=== PATIENT | female | born 1945 | race Caucasian/White ===

== ENCOUNTER 2018-10-09 11:52 | Observation (INO) ==
[2018-10-09] MEDS ORDERED: ZOFRAN IV ONE (14:05)
[2018-10-09] MEDS ORDERED: NS 1,000 ML IV ONE (14:05)
[2018-10-09] MEDS ORDERED: TORADOL IV ONE (14:05)
--- NOTE | 2018-10-09 14:08 | EKG Report ---
Test Performed on : 10/09/2018 12:30:11 PM Test Reason : CP Blood Pressure : / mmHG Vent. Rate : 070 BPM Atrial Rate : 070 BPM P-R Int : 220 ms QRS Dur : 088 ms QT Int : 392 ms P-R-T Axes : 054 -02 007 degrees QTc Int : 423 ms Sinus rhythm. with 1st degree AV block. Nonspecific T wave abnormality Abnormal ECG When compared with ECG of 10-DEC-2016 11:12, ST no longer depressed in Anterior leads T wave inversion now evident in Inferior leads Unconfirmed Result
--- NOTE | 2018-10-09 14:27 | Diag Imaging Result Doc PS360 ---
CHEST-2 VIEWS - 10/09/2018 INDICATION: CP COMPARISON: 12/10/2016 FINDINGS: The lungs are normally expanded and clear. Heart size and mediastinal contours are normal. No pneumothorax or pleural effusion. IMPRESSION: Negative exam. Electronically signed by Rafal Velazquez 10/09/2018 2:25 PM
[2018-10-09 14:41] LABS: BASO# 0.05 X1000 (0.0-0.2); BASO% 0.7 % (0.0-0.8); EOS# 0.27 X1000 (0.0-0.7); EOS% 3.7 % (0.0-10.0); HEMATOCRIT 38.7 % (37.0-47.0); HEMOGLOBIN 11.9 g/dL (12.0-16.0); LYMPH# 1.97 X1000 (1.2-3.4); LYMPH% 27.3 % (20.5-51.1); MCH 28.9 PG (27-31); MCHC 30.7 g/dL (33-37); MCV 93.9 FL (81-99); MONO# 0.68 X1000 (0.11-0.59); MONO% 9.4 % (1.7-9.3); NEUT# 4.24 X1000 (1.4-6.5); NEUT% 58.9 % (42.2-75.2); PLT 191 X1000 (130-400); RBC 4.12 XMIL (4.2-5.4); RDW 13.2 % (11.5-14.5); WBC 7.21 X1000 (4.8-10.8)
[2018-10-09 14:45] LABS: INR 1.21; PROTIME 16.3 Seconds (11.0-16.0)
[2018-10-09 14:46] LABS: PTT 34.2 Seconds (22.3-41.8)
[2018-10-09 14:59] LABS: ALB/GLOB RATIO 1.3; ALBUMIN 3.8 g/dL (3.5-5.0); CALCIUM 9.4 mg/dL (8.8-10.2); CREATININE 1.1 mg/dL (0.5-0.9); POTASSIUM 4.7 mmol/L (3.5-5.1); TOTAL BILIRUBIN 0.42 mg/dL (0.20-1.00); TOTAL PROTEIN 6.7 g/dL (6.3-8.3)
--- NOTE | 2018-10-09 16:11 | PROVIDER DOCUMENTATION ---
This chart was entered by Ni Michael Scribe, acting as scribe for Mickey Foster MD. HPI-Chest Pain - General Chief Complaint: Chest Pain Stated Complaint: chest pain Time Seen by Provider: 10/09/18 13:41 Source: patient Allergies/Adverse Reactions: Patient Allergies Allergy/AdvReac Type Severity Reaction Status Date / Time sulfamethoxazole Allergy FLUSHING Verified 12/10/16 11:29 [From Bactrim] trimethoprim [From Bactrim] Allergy FLUSHING Verified 12/10/16 11:29 Home Medications: Home Medication List Medication Instructions Recorded Confirmed Last Taken Type Celecoxib [Celebrex] 200 mg PO DAILY 03/09/13 12/10/16 12/10/16 08:30 History Hydrocodone/Acetaminophen [Lortab 1 each PO TID 03/09/13 12/10/16 12/10/16 07: 30 History 10-500 Tablet] Alprazolam [Xanax] 0.5 mg PO QHS 10/11/13 12/10/16 12/09/16 19:00 History Methenam/Me Blue/Ba/Salicy/Hyo 1 each PO Q6HR #12 tablet 04/25/15 12/10/16 Unknown Rx [Prosed-Ds Tablet] Levofloxacin [Levaquin] 500 mg PO DAILY 12/10/16 12/10/16 12/09/16 20:30 History Metoprolol [Lopressor] 25 mg PO DAILY 12/10/16 12/10/16 12/10/16 08:00 History - History of Present Illness-CP Nature of Presenting Problem: Patient is a 73 year old female who presents to the ED via EMS with chest pain. Patient states chest pain started while she was cleaning her house. Patient states having shortness of breath, nausea, and weakness. Patient states taking a nitro and her pain resolved completely. Location: reports: central Chest Pain Radiation: reports: no radiation Quality of Pain: reports: pressure Severity in ED: mild Onset/Duration: this afternoon Timing: gone now Context/Activities at Onset: reports: light activity Modifying Factors: improves with: nothing Associated Symptoms: reports: nausea, shortness of breath, weakness Nitro Today/Relief: 0.4 mg x 1, provided at home, complete relief Aspirin Treatment Today: 81 mg x 4, provided by EMS Prior Chest Pain/Cardiac Workup: reports: cardiac cath (7 years ago) Similar Symptoms Previously?: No Recently Seen Here or By Another Healthcare Provider: No Review of Systems - Adult - REVIEW OF SYSTEMS - ADULT Constitutional: reports: no symptoms reported. denies: chills Eyes: reports: no symptoms reported Ears, Nose, Mouth & Throat: reports: no symptoms reported Cardiovascular: reports: chest pain. denies: heart murmur, palpitations Respiratory: reports: shortness of breath. denies: cough, wheezing Gastrointestinal: reports: nausea. denies: abdominal pain, diarrhea, vomiting Genitourinary: reports: no symptoms reported Musculoskeletal: reports: muscle weakness. denies: back pain, neck pain Integumentary: reports: no symptoms reported Neurological: reports: no symptoms reported Psychiatric: reports: no symptoms reported Endocrine: reports: no symptoms reported Hematologic/Lymphatic: reports: no symptoms reported Allergic/Immunologic: reports: no symptoms reported All Other Systems: Reviewed and Negative Past History - Adult - PAST MEDICAL HISTORY-ADULT Review of Records: reports: Nursing Assessment Review, Medications Reviewed, Social history reviewed & non-contributory. Major Childhood Illnesses: reports: denies history Cardiovascular: reports: CHF, HTN Respiratory: reports: COPD Gastrointestinal: reports: denies history Obstetrical/Gynecological: reports: denies history Genitourinary: reports: chronic UTI's Musculoskeletal: reports: denies history Neurological: reports: denies history Endocrine/Immune: reports: denies history Other Conditions: reports: denies history - PRIOR SURGERIES/PROCEDURES Surgical/Procedure History: reports: hysterectomy, back/neck (neck), other ( bladder mesh, shoulder) - IMMUNIZATION STATUS Childhood Immunizations: See Nurse Assessment Flu Vaccine: See Nurse Assessment - FAMILY HISTORY Family History: reviewed, not pertinent - SOCIAL HISTORY Smoking: denies Substance Use: denies Living Situation: family Physical Exam-General - PHYSICAL EXAM-ADULT Initial Vital Signs Reviewed: Yes - CONSTITUTIONAL General Appearance: alert, no apparent distress - HEAD, EARS, NOSE, MOUTH & THROAT HENMT: moist mucous membranes, normal ENT inspection - NECK Neck: normal inspection - RESPIRATORY Respiratory: chest non-tender, lungs clear, normal breath sounds - CARDIOVASCULAR Cardiovascular: normal peripheral pulses, regular rate, rhythm - GASTROINTESTINAL (ABDOMEN) Abdominal Exam: normal bowel sounds, non tender, soft - MUSCULOSKELETAL Back Exam: normal inspection Extremity: non-tender, normal inspection - SKIN Integumentary: normal color, normal turgor, warm/dry - NEUROLOGIC Neurologic: grossly normal - PSYCHIATRIC Psych/Mental Status: normal mood/affect, oriented x 3 - HEART Score HEART Score: History: Highly Suspicious HEART Score: ECG: Non-Specific Repolarization Disturbance/LBBB/PM HEART Score: Age: > or = 65 Years HEART Score: Risk Factors for Atherosclerotic Disease: 1 or 2 Risk Factors HEART Score: Troponin: < or = Normal Limit Total HEART Score:: 6 Progress - PLAN OF CARE/RESULTS Progress/Plan/Lab Results: Vital Signs - 8 hr 10/09/18 12:35 10/09/18 12:36 10/09/18 12:40 Temperature 98.0 F Pulse Rate 75 72 73 Respiratory Rate 20 24 22 Blood Pressure 136/68 136/68 O2 Sat by Pulse Oximetry 100 99 100 10/09/18 12:50 10/09/18 13:00 10/09/18 13:02 Temperature Pulse Rate 75 74 68 Respiratory Rate 17 18 16 Blood Pressure 146/68 O2 Sat by Pulse Oximetry 99 100 99 10/09/18 13:10 10/09/18 13:20 Temperature Pulse Rate 69 69 Respiratory Rate 15 18 Blood Pressure O2 Sat by Pulse Oximetry 99 99 10/09/18 15:30 Influenza Screen - Final Nasopharyngeal Laboratory Results - last 24 hr 10/09/18 10/09/18 10/09/18 14:33 14:33 14:33 WBC 7.21 RBC 4.12 L Hgb 11.9 L Hct 38.7 MCV 93.9 MCH 28.9 MCHC 30.7 L RDW Std Deviation 13.2 Plt Count 191 MPV 11.0 H Immature Gran % (Auto) 0.0 Neut % (Auto) 58.9 Lymph % (Auto) 27.3 [place] % (Auto) 9.4 H Eos % (Auto) 3.7 Baso % (Auto) 0.7 Immature Gran # (Auto) 0.00 Neut # (Auto) 4.24 Lymph # (Auto) 1.97 [place] # (Auto) 0.68 H Eos # (Auto) 0.27 Baso # (Auto) 0.05 PT INR PTT (Actin FS) Sodium 134 L Potassium 4.7 Chloride 101 Carbon Dioxide 26 Anion Gap 7 BUN 17 Creatinine 1.1 H Estimated GFR/1.73 m2 48 BUN/Creatinine Ratio 15 Glucose 81 Calculated Osmolality 269 Calcium 9.4 Total Bilirubin 0.42 AST 20 ALT 7 L Alkaline Phosphatase 85 Creatine Kinase 65 Troponin T Rnq-P-Vhwraapgqxa Pept 524 H Total Protein 6.7 Albumin 3.8 Globulin 2.9 Albumin/Globulin Ratio 1.3 10/09/18 10/09/18 14:33 14:33 WBC RBC Hgb Hct MCV MCH MCHC RDW Std Deviation Plt Count MPV Immature Gran % (Auto) Neut % (Auto) Lymph % (Auto) [place] % (Auto) Eos % (Auto) Baso % (Auto) Immature Gran # (Auto) Neut # (Auto) Lymph # (Auto) [place] # (Auto) Eos # (Auto) Baso # (Auto) PT 16.3 H INR 1.21 PTT (Actin FS) 34.2 Sodium Potassium Chloride Carbon Dioxide Anion Gap BUN Creatinine Estimated GFR/1.73 m2 BUN/Creatinine Ratio Glucose Calculated Osmolality Calcium Total Bilirubin AST ALT Alkaline Phosphatase Creatine Kinase Troponin T < 0.010 [id number]-Ttvyipjntwg Pept Total Protein Albumin Globulin Albumin/Globulin Ratio Orders Category Date Time Status Cardiac Monitoring DIRECTED Care 10/09/18 13:04 Active Oxygen Therapy- ED Nursing DIRECTED Care 10/09/18 13:04 Active Saline Loc NOW Care 10/09/18 13:04 Active CHEST-2 VIEWS [RAD] Stat Exams 10/09/18 13:04 Completed CBC WITH ELECTRONIC DIFF [HEME] Stat Lab 10/09/18 14:33 Completed CK PROFILE [SP CHEM] Stat Lab 10/09/18 14:33 Completed COMPREHENSIVE METABOLIC PANEL [CHEM] Stat Lab 10/09/18 14:33 Completed INFLUENZA SCREEN A/B Stat Lab 10/09/18 15:30 Completed PRO B-NATRIURETIC PEPTIDE Stat Lab 10/09/18 14:33 Completed PROTIME WITH INR [COAG] Stat Lab 10/09/18 14:33 Completed PTT [COAG] Stat Lab 10/09/18 14:33 Completed TROPONIN T Stat Lab 10/09/18 14:33 Completed 0.9% Sodium Chloride Inj [Ns] 1,000 ml Med 10/09/18 14:05 Discontinued IV 999 mls/hr Ketorolac [Toradol] Med 10/09/18 14:05 Discontinued 15 mg IV NOW ONE Ondansetron [Zofran] Med 10/09/18 14:05 Discontinued 4 mg IV NOW ONE CP/SOB/Palp >45 yrs of Age Stat Oth 10/09/18 13:03 Ordered EKG [EKG] Stat Ther 10/09/18 13:04 Draft Result Diagrams: 10/09/18 14:33 10/09/18 14:33 - EKG 1 Time of EKG reading by physician:: 12:30 EKG Read and Signed by:: Mickey Foster EKG Interpretation (*Must complete 3 of following elements*): Abnormal Rate: 70 Rhythm: sinus rhythm with 1st degree AV block [place]: normal Comments: nonspecific T wave abnormality. - XRAY 1 XRAY Study: Chest Impression: See EMR Report (CHEST-2 VIEWS - 10/09/2018 INDICATION: CP COMPARISON: 12/10/2016 FINDINGS: The lungs are normally expanded and clear. Heart size and mediastinal contours are normal. No pneumothorax or pleural effusion. IMPRESSION: Negative exam. Electronically signed by Rafal Velazquez 10/09/2018 2:25 PM 10/09/18 1425 Interpreting Physician: Rafal Velazquez MD Dictated Date/Time: 10/09/18 1424 cc: Mickey Foster MD; None ,PCP) - CONSULTS/PCP/HOSPITALIST Notification #1 *Consult/PCP/Hospitalist*: CATY Rogers for Hospitalist Time Discussed: 15:53 (Dr. Lucio accepted admit) Reason/Comments: Dr. Foster consulted with Ken about patient Consult Disposition: Will see in ED, Admit Departure - Departure Date of Disposition Decision: 10/09/18 Time of Disposition Decision: 15:53 DIAGNOSIS: Chest pain Disposition: ADMITTED INPATIENT 09 Certified Medical Emergency: Emergent Condition: Stable Referrals and Follow-Ups: None,PCP [Primary Care Provider] - - Critical Care Note This patient required my direct & personal management of CC.: No Attestation - Physician/ PETR Attestation The physician spent face to face time with patient:: Yes Advanced Practice Provider documentation review:: Supervising physician onsite and consulted in the evaluation and care of this patient. The physician did have a face to face encounter with the patient. This chart was documented by the indicated scribe, (Ni Michael Scribe) and accurately reflects the services I performed and decisions made by me, Mickey Foster MD, as attested by the provider's signature.
[2018-10-09] MEDS ORDERED: DUONEB (A & A) INH PRN (17:43)
[2018-10-09 18:16] LABS: HEMOGLOBIN A1C 5.7 % (4.8-6.0)
[2018-10-09] MEDS: LOVENOX SUBQ SCH (18:50)
[2018-10-09 19:41] LABS: URINE SOURCE CLEAN CATCH
[2018-10-09 19:44] LABS: BILIRUBIN URINE NEGATIVE (NEGATIVE); BLOOD URINE NEGATIVE (NEGATIVE); COLOR YELLOW; GLUCOSE URINE NEGATIVE (NEGATIVE); KETONE URINE NEGATIVE (NEGATIVE); LEUKOCYTES URINE NEGATIVE (NEGATIVE); NITRITE URINE NEGATIVE (NEGATIVE); PROTEIN URINE NEGATIVE (NEGATIVE); SP GRAVITY URINE 1.004; TURBIDITY URINE CLEAR (CLEAR); UR EPITHELIAL CELLS <10 /HPF (<10); URINE BACTERIA NEGATIVE /HPF; URINE RBC <10 /HPF (<10); URINE WBC <10 /HPF (<10); UROBILINOGEN URINE NORMAL (NORMAL)
[2018-10-09] MEDS ORDERED: ULTRACET 37.5MG/325MG PO PRN (19:50)
--- NOTE | 2018-10-09 20:44 | HISTORY AND PHYSICAL ---
SURGICAL PHYSICIAN ASSISTANT: Dr. Ghulam Mendoza. PRIMARY CARE PHYSICIAN: Dr. Mckinley Cordero. CHIEF COMPLAINT: Chest pain. HISTORY OF PRESENT ILLNESS: Ms. Kendrick is a 73-year-old female with a history of mild COPD, hypertension, arthritis, reported congestive heart failure, and recurrent urinary tract infections who presented to the ER with acute onset of chest pain. She states that she was cleaning her house vigorously today, and almost at the end of her cleaning activities, she began having bilateral neck pain radiating up to the jaws. She sat down and then began having midsternal chest pain. This was all associated with nausea (no vomiting) and shortness of breath but no diaphoresis. She called 911 and took ntg,which did relieve the pain. Overall, the episode lasted around 20 minutes. Workup in the ER has thus far been negative. Her EKG shows sinus rhythm with nonspecific ST and T changes. Her troponin is negative times 1 set, and her vitals are stable. As such, we have been asked to admit her for observation status. PAST MEDICAL HISTORY: 1. Hypertension. 2. Osteoarthritis. 3. Osteoporosis. 4. Recurrent urinary tract infections. 5. History of chest pain in the past. She reports having had a normal heart catheterization done by Dr. Demetrio Nieto multiple years ago and was subsequently followed up by Dr. Mendoza here in [place]. 6. History of congestive heart failure per report. An echocardiogram done in 2013 did show grade 1 diastolic dysfunction but no systolic dysfunction. 7. Mild chronic obstructive pulmonary disease. PAST SURGICAL HISTORY: 1. Hysterectomy. 2. Neck fusion. 3. Right shoulder arthroplasty. 4. Bladder mesh. SOCIAL HISTORY: No tobacco, alcohol or drug use. She is . Her is at the bedside. FAMILY HISTORY: Mother from massive [place] in her 50s. Father in his 20s from an MVC. REVIEW OF SYSTEMS: A 14-point review of systems was obtained. She does state some dysuria, but otherwise a 14-point review of systems was obtained and found to be negative with the exception of the HPI. ALLERGIES: Bactrim. HOME MEDICATIONS: Yet to be compiled. PHYSICAL EXAMINATION: VITAL SIGNS: Blood pressure is 171/76, heart rate 75, respiratory rate 19, O2 saturation 94% on room air, temperature 98 degrees Fahrenheit. GENERAL: This is an elderly female lying in the hospital bed in no acute distress. NEUROLOGIC: She is awake, alert and oriented and follows commands. No focal deficits. HEENT: Head is atraumatic, normocephalic. Her pupils are equal, round, and reactive to light. Oral mucosa is moist. Trachea is midline. There is no JVD. CHEST: Diminished at the bases but clear to auscultation bilaterally. CV: Regular rate and rhythm. S1 and S2 noted. Noted appreciable murmurs. GI: Soft, nondistended, nontender. Bowel sounds are active. EXTREMITIES: Trace edema. Pulses 1+ bilaterally. DIAGNOSTIC DATA: Chest x-ray is negative. EKG - sinus rhythm, nonspecific ST and T changes. WBCs 7.21, hemoglobin 11.9, hematocrit 38.7, platelet count 191. INR 1.21. Sodium is 134, potassium 4.7, chloride 101. CO2 is 26, anion gap 7, BUN 17, creatinine 1.1, glucose 81. AST is 20, ALT 7, alkaline phosphatase 85. Troponin negative. ProBNP 524. Albumin 3.8. ASSESSMENT/PLAN: 1. Chest pain: Features suggestive of angina; however, thus far all of her workup is negative. All of her symptoms have subsided. Will make sure she has gotten aspirin and nitrates and consult Cardiology. We will order an echocardiogram, trend cardiac enzymes, and monitor telemetry. 2. Hypertension. Continue home medications once compiled. She is a bit hypertensive. Will add appropriate medications if needed. 3. Mild renal insufficiency: Likely age-related chronic kidney disease. Will have to get a full medication list and watch her creatinine. Will investigate further if needed. 4. Chronic obstructive pulmonary disease, currently not in exacerbation. Chest x-ray is negative. Will add as-needed nebulizers. 5. Dysuria. Will check a urinalysis and treat appropriately. 6. Deep venous thrombosis prophylaxis with Lovenox. 7. Further recommendations to follow. Dictated by CATY Betancoutr for Georges Lucio MD cc: CATY Betancourt MD I agree with most components of history, physical, assessment and plan. A separate addendum has been dictated. [facility]
[2018-10-09] MEDS: LIPITOR PO SCH (21:26)
[2018-10-09] MEDS: XANAX PO SCH (21:26)
--- NOTE | 2018-10-09 23:32 | HISTORY AND PHYSICAL ---
ADDENDUM: I agree with most components of the history and physical, and assessment and plan. In brief, Ms. Kendrick is a 72-year-old lady who has had 4 episodes of bilateral jaw pain radiating to the left chest, with a feeling as an elephant is sitting in the center of the chest over last 4 months. The latest episode was today morning she took a sublingual nitroglycerin which was prescribed to her by her primary care doctor, which immediately relieved the pain. En route to the ER, she had also received 325 of aspirin. Currently, she denies any chest pain. She has about a 30 to [id number] smoking history and hyperlipidemia. She denies a known history of deep venous thrombosis and pulmonary embolus. However, she was taking Xarelto to prevent blood clots. VITAL SIGNS: Currently, temperature of 98.1 degrees, pulse 77, respiratory rate 18, blood pressure 150/74, saturating 96% on room air. PHYSICAL EXAMINATION: GENERAL: Does not appear in any acute distress. LUNGS: Air entry bilaterally equal, without any wheezing. CARDIOVASCULAR: S1, S2 normal. No murmur, rub, or gallop. ABDOMEN: Soft, nontender. NEUROLOGIC: Alert and oriented x3. She has bilateral lower extremity edema, more on the right than on the left. No jugular venous distention. LABS: Initial labs are no leukocytosis. Hemoglobin, hematocrit, and platelets in acceptable range. Normal coagulation profile. Elevated creatinine, which appears to be present in 2017 as well. ASSESSMENT AND PLAN: 1. Anginal chest pain. She has risk factors of prior smoking history, age, hypertension, and hyperlipidemia. Her anginal chest pain was typical. I would appreciate Cardiology's recommendation about need for coronary angiography. She had bilateral hip osteoarthritis and left hip osteoporosis, so she may not be a candidate for an exercise stress test. Depending on risk stratification, she may or may not need a nuclear medicine stress test before proceeding for the coronary angiography. 2. History off cystocele, status post sling operation and multiple urinary tract infections. Hold her home antibiotics until final urine culture results come back. 3. Bilateral lower extremity swelling. Follow up with ultrasound to rule out DVT. I am holding Xarelto until then. 4. Essential hypertension. Continue home nebivolol. 5. Continue alprazolam for anxiety. 6. Disposition. The patient remains inside the hospital. 7. Further recommendations awaiting Cardiology consult. cc: Georges Lucio MD
[2018-10-10 06:39] LABS: HEMATOCRIT 34.9 % (37.0-47.0); HEMOGLOBIN 11.1 g/dL (12.0-16.0); MCHC 31.8 g/dL (33-37); MCV 94.3 FL (81-99); MPV 11.3 FL (7.4-10.4); RBC 3.7 XMIL (4.2-5.4); RDW 13.4 % (11.5-14.5); WBC 6.85 X1000 (4.8-10.8)
[2018-10-10 06:57] LABS: AGAP 8; BUN 17 mg/dL (8-22); CALCIUM 8.6 mg/dL (8.8-10.2); CHLORIDE 104 mmol/L (98-107); COSMO 273; CREATININE 0.9 mg/dL (0.5-0.9); ESTIMATED GFR > 60; GLUCOSE 91 mg/dL (70-104); POTASSIUM 4.3 mmol/L (3.5-5.1); SODIUM 136 mmol/L (136-145); TCO2 24 mmol/L (25-35)
--- NOTE | 2018-10-10 08:03 | EKG Report ---
Test Performed on : 10/10/2018 07:04:53 AM Test Reason : chest pain Blood Pressure : / mmHG Vent. Rate : 063 BPM Atrial Rate : 063 BPM P-R Int : 216 ms QRS Dur : 086 ms QT Int : 456 ms P-R-T Axes : 059 019 051 degrees QTc Int : 466 ms Sinus rhythm. with 1st degree AV block. Nonspecific T wave abnormality Abnormal ECG When compared with ECG of 09-OCT-2018 12:30, (Unconfirmed) Nonspecific T wave abnormality, worse in Lateral leads Confirmed by Michele Figueredo MD ([id number]) on 10/11/2018 7:10:08 AM
[2018-10-10] MEDS ORDERED: RIVAROXABAN 2.5 MG PO SCH (09:00)
[2018-10-10] MEDS ORDERED: ASPIRIN PO SCH (09:00)
[2018-10-10] MEDS ORDERED: LEXISCAN ONE (12:02)
--- NOTE | 2018-10-10 15:12 | ECHO REPORT ---
ORDER DATE: 10/10/2018 INDICATION FOR STUDY: Chest pain. FINDINGS: 1. The right atrium appears normal in size at 3 cm. 2. Mild tricuspid regurgitation. RV systolic pressure 38. 3. Normal RV size and systolic function. 4. Trace pulmonic insufficiency. 5. Normal left atrial size at 3.9 cm. 6. No mitral valve prolapse. There is mild mitral regurgitation. There is no evidence of mitral stenosis on this study. 7. Normal LV size, end-diastolic dimension of 4.2. Mild left ventricular hypertrophy with a posterior and interventricular septal wall thickness 1.2 cm each. Normal LV systolic function. The estimated EF is 60% to 65% with normal wall motion. 8. Aortic valve is difficult to see on 2-dimensional imaging but there is no significant gradient identified. There is mild aortic insufficiency. 9. Aorta appears normal in visualized segments. 10. There is no pericardial effusion identified. cc: MD Georges Dai MD
--- NOTE | 2018-10-10 16:22 | Diag Imaging Result Document ---
PROCEDURE NAME: MYOCARDIAL PERF SCAN, STR/REST - 10/10/2018 INDICATION: Chest pain. PROCEDURES PERFORMED: 1. Walking Lexiscan stress. 2. One day stress rest myocardial perfusion imaging. PROCEDURE IN DETAIL: Ms. Aroldo Valle was brought to the nuclear laboratory and had a resting study with injection of 14.4 mCi of technetium-99m sestamibi with usual imaging protocol utilized. She subsequently was brought back and had a walking Lexiscan stress and at peak stress, was injected with 36.9 mCi of technetium-99m sestamibi with usual imaging protocol utilized. FINDINGS: 1. Baseline EKG shows sinus rhythm. 2. Lexiscan stress did not demonstrate any clear evidence of ischemic related EKG changes or significant arrhythmias. PERFUSION IMAGING RESULTS: 1. There is no evidence of abnormal extracardiac uptake. 2. TID ratio is 1.04. 3. Perfusion imaging demonstrates a small size, mild intensity defect located in the distal anterior wall. This defect actually appears to improve somewhat from rest to stress imaging. There is breast soft tissue attenuation noted in this area. Wall motion is intact in the area. There is no evidence of ischemia. This appears to be a low risk study. 4. Normal ejection fraction on stress of 77% with a rest EF of 81%. The end-diastolic volume on stress is 120 with an end systolic volume of 27. Normal wall motion is noted on this study. cc: MD Ari Dai MD
[2018-10-10] MEDS: XANAX PO SCH ×4 (16:40→21:18)
[2018-10-10] MEDS: ZYPREXA PO SCH (16:41)
[2018-10-10] MEDS ORDERED: BYSTOLIC PO ONE (17:04)
--- NOTE | 2018-10-10 17:07 | CARDIOLOGY CONSULTATION ---
DATE: 10/10/2018 REQUESTING PHYSICIAN: Hospitalist Service REASON FOR CONSULTATION: Chest pain. HISTORY OF PRESENT ILLNESS: Ms. Kendrick is a 73-year-old female who is normally followed by Dr. Mckinley Cordero in [facility], and also by Dr. Ghulam Mendoza here in the [facility]. The patient presented to the ER yesterday with complaints of recurrent episodes of substernal chest pain with jaw pain that happened after she had done some physical work at home. The patient has significant degree of arthritis involving her hips, knees and toes, and for her to do her house chores represents a big effort. After finishing her chores, she started having jaw pain, and then this moved down to the substernal area of the chest. She got concerned and decided to come to the ER. In the ER, they have done multiple blood tests for troponins, all of them negative, including the once this morning. A ProBNP level is minimally elevated at 524, normal is up to 450. They have done chest x-ray that shows no acute abnormalities. A 12-lead electrocardiogram shows sinus rhythm with a very minor nonspecific ST abnormality. EKGs that have been done at the office in the past including 06/2018 have shown some sinus rhythm with first degree AV block and a little bit of ST abnormality. The patient is not having any more pain. She said that she took a nitroglycerin, and the pain went away within 5 seconds. The patient is in no distress. PAST MEDICAL HISTORY: Positive for hypertension. She has coronary heart disease of mild degree. In 06/2009, she underwent heart catheterization that showed 10% to 20% LAD stenosis, 20% to 25% circumflex, RCA with minimal irregularities. She has been treated medically. Her last stress test was done in 11/2014 that showed small fixed defect of moderate severity involving the apex. EF was normal. They have not done a recent echocardiogram. The patient has hypertension, hyperlipidemia. There is mild degree of diastolic dysfunction on her. She has COPD. She had acid reflux. PAST SURGICAL HISTORY: Neck surgery, bladder suspension, breast implants, hysterectomy, shoulder surgery and vascular surgery. SOCIAL HISTORY: She is . She is retired. She has 3 living children. is in the room with her. Not a drinker. Not a current smoker. She quit smoking about 12 or 13 years ago. FAMILY HISTORY: Father had heart attack. Son had coronary bypass surgery. HOME MEDICATIONS: At the time of this admission included alprazolam 1 mg 3 times a day, calcium atorvastatin 20 mg at bedtime, Omnicef 300 every 12 hours, celecoxib 200 daily, ciprofloxacin 500 every 12 hours, Bystolic 2.5 daily, furosemide 20 mg daily, olanzapine 2.5 mg daily, raloxifene 60 mg daily, Xarelto 2.5 daily, tramadol 37.5/325 daily. ALLERGIES: Bactrim, trimethoprim. REVIEW OF SYSTEMS: Very limited by multiple joint arthritis including toes, knees and hips. Other than that, no major positives in multiple systems including cardiovascular, gastrointestinal, hematological, skin, psychiatric, neurological, genitourinary, pulmonary, etc. PHYSICAL EXAMINATION: Blood pressure is 122/50, pulse 60, respirations 14, temperature 97.6. She is awake, alert and oriented, no distress. She is obese. HEENT: Unremarkable. Chest: Clear to auscultation and percussion. Heart sounds regular and rhythmic. I do not hear a gallop or murmur. Her abdomen is obese, nontender. Extremities showed palpable pulses. No edema. Neurologic: Follows commands. Moves all 4 extremities. DIAGNOSTIC DATA: Blood work includes hemoglobin of 11.1, hematocrit 34.9, white cell count 6850. Sodium is 136, potassium 4.3, BUN is 17, creatinine 0.9. IMPRESSION: 1. The patient is with chest pain that is somewhat atypical. So far, she has ruled out for myocardial infarction. EKGs showed no significant abnormalities. Her history is positive for previous mild coronary artery disease. 2. Hypertension. 3. Hyperlipidemia. 4. Multiple joint arthritis. RECOMMENDATIONS: We would recommend a myocardial perfusion stress test and an echocardiogram for further evaluation. If those studies are negative, I think the patient may be discharged home later on today. Please call us if further assistance is needed. cc: Ari Ritchie MD
[2018-10-10] MEDS: NORVASC PO SCH (17:21)
[2018-10-10] MEDS: LOVENOX SUBQ SCH (17:22)
--- NOTE | 2018-10-10 17:55 | PROGRESS NOTE ---
DATE: 10/10/2018 INTERVAL HISTORY: She did not have any more chest pain episodes. She denies any nausea, vomiting or abdominal pain. She had a nuclear medicine stress test done; however, the results are pending. Echocardiogram was unremarkable. SUBJECTIVE: The patient complains of dysphagia, which has been ongoing since a few weeks now. She states that it has been intermittent dysphagia where she has a feeling that the food is sticking inside the esophagus, and she has to drink a lot of water to get down. She denies noticing chest pain episode at the time of particularly swallowing the food, though. OBJECTIVE: Vital signs: Temperature 97.6 degrees, pulse 66, respiratory rate 14, blood pressure 187/71, saturating 99% on room air. General: Not in any acute distress. Oral cavity is moist. Air entry bilaterally equal. No wheeze, rhonchi or crackles. S1, S2 normal. No murmur, rub or gallop. Abdomen is soft, nontender. No jugular venous distention. She does have bilateral lower extremity edema, more on the right than the left. Alert and oriented x3. LABORATORY DATA: Labs suggestive of no leukocytosis, acceptable range of hemoglobin, hematocrit and platelet count. She, however, does have mild anemia. DIAGNOSTIC DATA: Echocardiogram suggestive of normal ejection fraction of about 60% to 65%, without any regional wall motion abnormalities. ASSESSMENT AND PLAN: 1. Acute anginal chest pain. Follow up with formal reading of nuclear medicine stress test to rule out any regional wall motion abnormality and possible need for further intervention. Continue the patient on home atorvastatin and aspirin. 2. History of cystocele, status post sling operation and multiple urinary tract infections. Her urinalysis was unremarkable. She did not have any urine infection. No need of antibiotics. 3. Bilateral lower extremity swelling. Follow up ultrasound to rule out deep venous thrombosis. I will resume her Xarelto that she has been taking for lower extremity swelling; however, she denies known history of deep venous thrombosis. 4. Essential hypertension. Continue Nebivolol. I will start the patient on amlodipine. 5. Acute renal insufficiency: resolved. 5. Anxiety. Continue home alprazolam. 6. Dysphagia. The patient has been reporting intermittent dysphagia. She denies any smoking, alcohol or known cancer history. It is possible that esophageal disorder might be mimicking her jaw pain or chest pain episodes; however, she could not really tell me if her chest pain episodes coincided with the swallowing of food. I have discussed with her about following up with Gastroenterology as an outpatient early next week, and she is planning to schedule an appointment with her regular hemodialysis rn next week. She should consider getting barium studies to begin with. 7. Disposition. I was just informed that the nuclear medicine stress was unremarkable; however, considering the patient is hypertensive with systolic blood pressure more than 180, I decided to keep her inside the hospital, start her on another antihypertensive medication and possibly discharge her tomorrow. Plan of care was discussed with her and her at bedside. All of their questions have been answered. cc: Georges Lucio MD MTDD
[2018-10-10] MEDS: LIPITOR PO SCH (21:18)
[2018-10-11] MEDS: BYSTOLIC PO SCH ×2 (02:09→09:23)
[2018-10-11] MEDS: XARELTO PO SCH ×2 (05:56→07:47)
[2018-10-11] MEDS ORDERED: XARELTO PO SCH (06:00)
[2018-10-11 09:06] VITALS: BP 143/62
[2018-10-11] MEDS: XANAX PO SCH ×2 (09:24→09:26)
[2018-10-11] MEDS: ZYPREXA PO SCH (09:24)
[2018-10-11] MEDS: NORVASC PO SCH (09:24)
--- NOTE | 2018-10-11 22:27 | DISCHARGE SUMMARY ---
ADMISSION DATE: 10/09/2018 DISCHARGE DATE: 10/11/2018 DISCHARGE DIAGNOSES: 1. Acute anginal chest pain, with negative cardiac workup. 2. Bilateral lower extremity swelling. 3. Essential hypertension. 4. Dysphagia. OTHER DIAGNOSES: 1. History of essential hypertension. 2. History of anxiety. 3. History of chronic pain. 4. History of hyperlipidemia. 5. History of chronic anticoagulation; on Xarelto, with unclear indication. CONSULTATIONS: During hospitalization, Cardiology, Dr. Ghulam Mendoza. DISCHARGE MEDICATIONS: 1. Atorvastatin 20 mg at nighttime. 2. Alprazolam 1 mg t.i.d. 3. Celecoxib 200 mg daily. 4. Estradiol vaginal cream 42.5 mg vaginally as directed. 5. Furosemide 20 mg p.o. p.r.n. 6. Nebivolol 2.5 mg daily. 7. Nitrofurantoin 100 mg daily. 8. Olanzapine 2.5 mg daily. 9. Promethazine 6.25 mg p.o. q.6 hours p.r.n. 10. Raloxifene 60 mg p.o. daily p.r.n. 11. Rivaroxaban 2.5 mg p.o. daily. 12. Tramadol/acetaminophen 37.5/325 mg p.o. q.6 hours. 13. Amlodipine 5 mg p.o. daily; 30 tablets have been prescribed. PHYSICAL EXAMINATION: Vital signs at the time of discharge: Temperature 97.6 degrees, pulse 60 per minute, blood pressure 132/47, saturating 99% on room air. In general appears obese, not in any acute distress. Oral cavity moist. Air entry bilaterally equal. No wheeze, rhonchi or crackles. S1, S2 normal. No murmur, rub or gallop. No chest wall tenderness. Abdomen is soft. No hepatosplenomegaly. Bilateral lower extremity edema, more on the right than left. Neurologic: Alert and oriented x3. LABORATORY DATA: During hospital discharge WBC 6.8, hemoglobin of 11, platelets of 184,000. Normal electrolytes. Creatinine of 0.9. Nasopharyngeal influenza screen was negative. DIAGNOSTIC DATA: 1. Imaging during hospitalization: Chest x-ray on 10/09 did not detect any acute cardiopulmonary process. 2. Myocardial perfusion scan nuclear medicine had detected sinus rhythm on baseline EKG. Lexiscan stress did not demonstrate any clear evidence of ischemic-related EKG changes or significant arrhythmias. Perfusion imaging had suggested ejection fraction on stress off 77% with rest ejection fraction of 81%. Normal wall motion. 3. Electrocardiogram on admission had suggested normal sinus rhythm with first-degree AV block, with P-R interval of 220. 4. Echocardiogram had suggested ejection fraction of 60% to 65% with normal wall motion. HOSPITAL COURSE: Ms. Kendrick is a 73-year-old lady who came in with chief complaints of bilateral jaw pain which later on moved to center of the chest while she was cleaning her house. The chest pain lasted for up to 30 minutes and it did not resolve, so she called 911. Apparently she has had 4 such episodes of midsternal chest pain over the last 4 months. The chest pain character was dull, feeling like an elephant was sitting on the chest. The 911 had advised her to take nitroglycerin, which she took and immediately her chest pain resolved. When EMS arrived, she was given 325 mg of aspirin and was taken to the emergency room. In the emergency room her vitals were unremarkable; however, considering anginal chest pain nature she was admitted for cardiac workup. She underwent echocardiogram nuclear medicine stress test, which did not detect any regional wall motion abnormalities or ejection fraction abnormalities. Her ejection fraction was normal. During hospital admission she did not have any chest pain. The patient was advised to follow up with her regular doctor outpatient. The patient also complained on admission of dysphagia which had been ongoing for over 6 months. She mentions that she intermittently has dysphagia where she would feel as if the food was sticking inside the esophagus and she would have to drink a lot of water to get it down. She denied odynophagia or unusual weight loss. During hospitalization she was able to eat without much difficulty. She was advised to see her regular elevator constructor as an outpatient, and she told me that she would schedule an appointment in the next week's time. I advised her that she should discuss with the elevator constructor about getting a barium study done outpatient. Other diagnosis: The patient had history of hysterectomy, neck fusion surgery, right shoulder arthroplasty, a bladder sling operation and multiple UTIs. More than 30 minutes were spent in discharging the patient. All of her questions have been answered. cc: Georges Lucio MD
== END 2018-10-11 10:00 | disposition home or self-care (01) ==
LOC: SUPCPDRO → ED 11:52 → 4N 11:52
PROVIDERS: ATTEND Internal Medicine
CPT/HCPCS: 71020; 71046; 78452; 80048; 80053; 81001; 82550; 83036; 83880; 84443; 84484; 85025; 85027; 85610; 85730; 87275; 87276; 87804; 93005; 93010; 93017; 93306; 93970; 94640; 94761; 96361; 96374; 96375; 99285; A9270; A9500; C8929; J1650; J1885; J2405; J2785; J7030; Q9957

== ENCOUNTER 2019-10-30 11:47 | Inpatient (IN) ==
[2019-10-30 13:34] LABS: URINE SOURCE CATH
--- NOTE | 2019-10-30 13:42 | Diag Imaging Result Doc PS360 ---
EXAM: CHEST-1 VIEW 10/30/2019 HISTORY: weakness TECHNIQUE: AP portable upright at 1325 COMMENT: There are diffuse coarse ill-defined opacities bilaterally particularly in the upper lung zones. This was not the case on 10/09/2018. IMPRESSION: Bilateral pneumonia. Electronically signed by Rasheed Rodriguez 10/30/2019 1:40 PM
[2019-10-30 13:51] LABS: BILIRUBIN URINE NEGATIVE (NEGATIVE); BLOOD URINE NEGATIVE (NEGATIVE); COLOR YELLOW; GLUCOSE URINE NEGATIVE (NEGATIVE); KETONE URINE NEGATIVE (NEGATIVE); LEUKOCYTES URINE TRACE (NEGATIVE); NITRITE URINE NEGATIVE (NEGATIVE); PH URINE 6.5; PROTEIN URINE NEGATIVE (NEGATIVE); SP GRAVITY URINE 1.009; TURBIDITY URINE CLEAR (CLEAR); UROBILINOGEN URINE NORMAL (NORMAL)
[2019-10-30 13:52] LABS: UR EPITHELIAL CELLS <10 /HPF (<10); URINE BACTERIA 3+ /HPF; URINE RBC <10 /HPF (<10); URINE WBC <10 /HPF (<10)
[2019-10-30 13:54] LABS: BASO# 0.05 X1000 (0.0-0.2); BASO% 0.5 % (0.0-0.8); EOS# 0.19 X1000 (0.0-0.7); HEMATOCRIT 37.8 % (37.0-47.0); HEMOGLOBIN 12.1 g/dL (12.0-16.0); IMM GRAN# 0.02 X1000 (0.0-0.04); IMM GRAN% 0.2 % (0.0-0.5); INR 1.13; LYMPH# 1.72 X1000 (1.2-3.4); LYMPH% 18.2 % (20.5-51.1); MCH 28.9 PG (27-31); MCV 90.2 FL (81-99); MONO# 1.18 X1000 (0.11-0.59); MONO% 12.5 % (1.7-9.3); MPV 10.5 FL (7.4-10.4); NEUT# 6.31 X1000 (1.4-6.5); NEUT% 66.6 % (42.2-75.2); PLT 356 X1000 (130-400); PROTIME 14.7 Seconds (11.0-16.0); RBC 4.19 XMIL (4.2-5.4); RDW 13.8 % (11.5-14.5); WBC 9.47 X1000 (4.8-10.8)
[2019-10-30 13:55] LABS: PTT 33.6 Seconds (22.3-41.8)
[2019-10-30] MEDS ORDERED: ROCEPHIN 1 GM in NS 50 ML IV ONE ×2 (14:05→15:00)
[2019-10-30 14:08] LABS: AGAP 13; ALB/GLOB RATIO 1.3; ALBUMIN 3.6 g/dL (3.5-5.0); ALKALINE PHOSPHATASE 268 U/L (32-104); BUN 14 mg/dL (8-22); CALCIUM 9.2 mg/dL (8.8-10.2); CHLORIDE 100 mmol/L (98-107); CK PROFILE 24 U/L (24-173); COSMO 267; CREATININE 0.8 mg/dL (0.5-0.9); ESTIMATED GFR > 60; GLUCOSE 100 mg/dL (70-104); GOT 260 U/L (10-30); GPT 224 U/L (10-36); POTASSIUM 4.8 mmol/L (3.5-5.1); SODIUM 133 mmol/L (136-145); TCO2 20 mmol/L (25-35); TOTAL BILIRUBIN 0.45 mg/dL (0.20-1.00); TOTAL PROTEIN 6.3 g/dL (6.3-8.3)
--- NOTE | 2019-10-30 14:33 | PROVIDER DOCUMENTATION ---
This chart was entered by Xiomara Campuzano Scribe, acting as scribe for Ale Cummins MD. HPI-General Adult - General Chief Complaint: Weakness Stated Complaint: WEAKNESS Time Seen by Provider: 10/30/19 12:33 Source: patient, family (son and daughter palma), EMS Allergies/Adverse Reactions: Patient Allergies Allergy/AdvReac Type Severity Reaction Status Date / Time sulfamethoxazole Allergy FLUSHING Verified 10/30/19 12:40 [From Bactrim] trimethoprim [From Bactrim] Allergy FLUSHING Verified 10/30/19 12:40 Home Medications: Home Medication List Medication Instructions Recorded Confirmed Last Taken Type Alprazolam 1 mg PO BID 10/09/18 10/30/19 10/30/19 History Atorvastatin Calcium 20 mg PO QHS 10/09/18 10/30/19 10/29/19 History Celecoxib 200 mg PO DAILY 10/09/18 10/30/19 10/30/19 History Estradiol Vaginal Cream [Estrace 42.5 mg VAG DIRECTED 10/09/18 10/30/19 1 Week Ago History Vaginal Cream] ~10/23/19 Furosemide 20 mg PO PRN PRN 10/09/18 10/30/19 10/30/19 History Nitrofurantoin Monohyd/M-Cryst 100 mg PO DAILY 10/09/18 10/30/19 10/30/19 History [Nitrofurantoin [place]-Mcr 100 mg] Tramadol HCl/Acetaminophen 37.5 - 325 mg PO Q6H 10/09/18 10/09/18 10/28/19 History [Tramadol-Acetaminophn 37.5-325] Cephalexin 1 cap PO TID 10/30/19 10/30/19 10/30/19 History Famotidine 1 tab PO DAILY 10/30/19 10/30/19 10/30/19 History Hydrocodone/Acetaminophen [[place] 1 tab PO TID PRN 10/30/19 10/30/19 10/30/19 12:30 History 10-325 Tablet] Metoprolol Succinate E.r. [Toprol 1 tab PO DAILY 10/30/19 10/30/19 10/30/19 History Xl] Sennosides/Docusate Sodium [Senna 2 tab PO QHS 10/30/19 10/30/19 10/30/19 History Plus Tablet] - History of Present Illness -Gen Adult Nature of Presenting Problems: 74 yowf presents to the ed with c/o generalized weakness since . she also reports trouble with ambulation, intermittent diarrhea, suprapubic abdominal tenderness, cough, poor appetite and weight loss. pt has had PNA 3x since and sts "I just don't feel good" pt sts saw PMD dr soha davis yesterday. pt has had chronic UTI and has had multiple abx without relief of sx Location of Pain/Injury: reports: abdomen (suprapubic fullness), generalized (weakness) Quality of Pain: reports: fullness (suprapubic), other (weakness) Severity: reports: moderate Onset/Duration: reports: gradual Timing: reports: still present, intermittent, getting worse Context/Activities at Onset: reports: light activity Modifying Factors: improves with: nothing Associated Symptoms: reports: cough, diarrhea, fatigue, genitourinary problems, loss of appetite, malaise, muscle aches, weakness, trouble walking. denies: back/neck pain, chest pain, dizziness, EENT symptoms, headaches, nausea, shortness of breath, vomiting Similar Symptoms Previously?: Yes (freq UTI) Recently seen or treated by another doctor?: Yes (PMD yesterday) Review of Systems - Adult - REVIEW OF SYSTEMS - ADULT Constitutional: reports: see HPI, weight loss. denies: chills, fever Eyes: reports: no symptoms reported Ears, Nose, Mouth & Throat: reports: no symptoms reported Cardiovascular: denies: chest pain, palpitations Respiratory: reports: see HPI, cough. denies: shortness of breath, wheezing Gastrointestinal: reports: see HPI, abdominal pain, diarrhea, poor appetite. denies: vomiting Genitourinary: reports: see HPI, frequent UTI's, incontinence Musculoskeletal: reports: see HPI, other (generalized weakness) Integumentary: reports: no symptoms reported Neurological: reports: see HPI, loss of balance. denies: dizziness/vertigo, headache/migraines, slurred speech, tremors Psychiatric: reports: no symptoms reported Endocrine: reports: no symptoms reported Hematologic/Lymphatic: reports: no symptoms reported Allergic/Immunologic: reports: no symptoms reported All Other Systems: Reviewed and Negative Past History - Adult - PAST MEDICAL HISTORY-ADULT Review of Records: reports: Old Records Reviewed, Nursing Assessment Review, Medications Reviewed, Social history reviewed & non-contributory. Major Childhood Illnesses: reports: denies history Cardiovascular: reports: CHF, HTN Respiratory: reports: COPD Gastrointestinal: reports: denies history Obstetrical/Gynecological: reports: denies history Genitourinary: reports: chronic UTI's Musculoskeletal: reports: denies history Neurological: reports: denies history Psychiatric: reports: denies history Endocrine/Immune: reports: denies history Other Conditions: reports: denies history - PRIOR SURGERIES/PROCEDURES Surgical/Procedure History: reports: hysterectomy, back/neck (neck), other (bladder mesh, shoulder) - IMMUNIZATION STATUS Childhood Immunizations: See Nurse Assessment Flu Vaccine: See Nurse Assessment - FAMILY HISTORY Family History: reviewed, not pertinent - SOCIAL HISTORY Smoking: quit greater than 1 year Substance Use: denies Living Situation: family Physical Exam-General - PHYSICAL EXAM-ADULT Initial Vital Signs Reviewed: Yes - CONSTITUTIONAL General Appearance: appears well, alert, no apparent distress (nontoxic in appearance), obese - EYES Eyes: PERRL/EOMI, pink conjunctivae - HEAD, EARS, NOSE, MOUTH & THROAT HENMT: negative: moist mucous membranes (dry oral) - NECK Neck: full range of motion, supple, normal inspection - RESPIRATORY Respiratory: chest non-tender, lungs clear, normal breath sounds - CARDIOVASCULAR Cardiovascular: normal peripheral pulses, regular rate, rhythm - CHEST (BREASTS) Chest/Breast: deferred - GASTROINTESTINAL (ABDOMEN) Abdominal Exam: normal bowel sounds, soft, tenderness (suprapubic tenderness) - GENITOURINARY Female Genitalia/Pelvic Exam: deferred Rectal Exam: deferred Hemoccult Exam: deferred - LYMPHATIC Lymphatic: no adenopathy - MUSCULOSKELETAL Back Exam: no CVA tenderness, no vertebral tenderness Extremity: normal range of motion, normal capillary refill, pelvis stable, swelling (BLE) - SKIN Integumentary: normal color, normal turgor, warm/dry - NEUROLOGIC Neurologic: grossly normal - PSYCHIATRIC Psych/Mental Status: normal mood/affect, normal thought content, normal thought process, oriented x 3 Progress - PLAN OF CARE/RESULTS Progress/Plan/Lab Results: Vital Signs - 8 hr 10/30/19 12:20 Temperature 97.8 F Pulse Rate 75 Respiratory Rate 18 Blood Pressure 149/82 O2 Sat by Pulse Oximetry 92 L Laboratory Results - last 24 hr 10/30/19 12:19 POC Glucose 94 Orders Category Date Time Status Cardiac Monitoring NOW Care 10/30/19 12:30 Active IV Insertion NOW Care 10/30/19 12:30 Active NEWS Score 2-4:Order NEWS Lactate Series NOW Care 10/30/19 12:26 Active Notify Provider of NEWS Score NOW Care 10/30/19 12:30 Active CHEST-1 VIEW [RAD] Stat Exams 10/30/19 12:30 Ordered BLOOD CULTURE [BLDCUL] Stat Lab 10/30/19 12:30 Uncollected CBC WITH DIFF [HEME] Stat Lab 10/30/19 12:30 Uncollected CK PROFILE [SP CHEM] Stat Lab 10/30/19 12:30 Uncollected COMPREHENSIVE METABOLIC PANEL [CHEM] Stat Lab 10/30/19 12:30 Uncollected LACTATE, PLASMA [CHEM] Q3H Lab 10/30/19 12:30 Uncollected LACTATE, PLASMA [CHEM] Q3H Lab 10/30/19 15:30 Uncollected LACTATE, PLASMA [CHEM] Q3H Lab 10/30/19 18:30 Uncollected PROTIME WITH INR [COAG] Stat Lab 10/30/19 12:30 Uncollected PTT [COAG] Stat Lab 10/30/19 12:30 Uncollected TROPONIN T HIGH SENSITIVITY Stat Lab 10/30/19 12:30 Uncollected URINALYSIS W/POSS RFLX CULT [URINALYSIS] Stat Lab 10/30/19 12:30 Uncollected O2 Per Protocol Stat Oth 10/30/19 12:30 Active Result Diagrams: 10/30/19 12:58 10/30/19 12:58 - REASSESSMENT Reassessment #1 Time Reassessed: 14:01 Status: unchanged (dr cummins at bedside) - EKG 1 Time of EKG reading by physician:: 12:45 EKG Read and Signed by:: Ale Cummins EKG Interpretation (*Must complete 3 of following elements*): Abnormal Rate: 71 Rhythm: nsr [place]: normal QRS: normal [place] Interval: normal ST Wave: normal Comments: septal infarct, age undetermined - XRAY 1 XRAY: Bilateral XRAY Study: Chest Impression: See EMR Report (MPRESSION: Bilateral pneumonia. Electronically signed by Rasheed Rodriguez 10/30/2019 1:40 PM) - CONSULTS/PCP/HOSPITALIST Notification #1 *Consult/PCP/Hospitalist*: hospitalist dr oh Time Discussed: 14:10 (spoke with kelsea) Consult Disposition: Will see in ED, Admit Departure - Departure Date of Disposition Decision: 10/30/19 Time of Disposition Decision: 14:12 DIAGNOSIS: Weakness PNA (pneumonia) Qualifiers: Pneumonia type: due to unspecified organism Laterality: bilateral Lung location: unspecified part of lung Qualified Code(s): J18.9 - Pneumonia, unspecified organism Disposition: ADMITTED INPATIENT 09 Certified Medical Emergency: Emergent Condition: Stable - Critical Care Note This patient required my direct & personal management of CC.: No Attestation - Physician/ PETR Attestation Patient care was provided by Advanced Practice Provider:: No The physician spent face to face time with patient:: Yes Advanced Practice Provider documentation review:: Supervising physician onsite and consulted in the evaluation and care of this patient. The physician did have a face to face encounter with the patient. This chart was documented by the indicated scribe, (Xiomara Campuzano Scribe) and accurately reflects the services I performed and decisions made by Jessa earl Mai Huu, MD, as attested by the provider's signature.
[2019-10-30] MEDS ORDERED: VANCOMYCIN IV PER PHARMACY MISC SCH (14:45)
[2019-10-30] MEDS ORDERED: ZOSYN 3.375 GM in NS 50 ML IV SCH (14:45)
[2019-10-30] MEDS ORDERED: TYLENOL PO PRN (15:29)
--- NOTE | 2019-10-30 15:31 | HISTORY AND PHYSICAL ---
PRIMARY CARE PHYSICIAN: Dr. Mann. CHIEF COMPLAINT: Generalized weakness, cough, decreased appetite, and diarrhea. HISTORY OF PRESENTING ILLNESS: This is a 74-year-old female who presents to [facility] via EMS with diffuse weakness, trouble with ambulation, poor appetite, weight loss, cough. States that she has had pneumonia 3 times since [place] and had been in the hospital recently at [facility] but has just not been feeling any better. Her workup showed an O2 saturation of 92% on room air, normal white blood cell count 9.47. Her chest x-ray does show bilateral pneumonia. She is also noted to have some elevation in her LFTs with an AST of 260, ALT 224, alkaline phosphatase 268, so she will be admitted for further evaluation and treatment. PAST MEDICAL HISTORY: Hypertension, osteoarthritis, osteoporosis, recurrent UTIs, CHF and COPD. PAST SURGICAL HISTORY: Hysterectomy, neck surgery, right shoulder surgery, and bladder mesh. FAMILY HISTORY: Her mom had an [place]. Her father passed in his 20s of an MVC. SOCIAL HISTORY: She currently lives with her . Denies any tobacco, alcohol or illicit drug use. ALLERGIES: Sulfa. HOME MEDICATIONS: A current list will need to be obtained, reconciled, reviewed and restarted as appropriate. Placed an order for nursing to update and confirm home medications. LABORATORY DATA: Showed a white blood cell count of 9.47, hemoglobin 12.1, hematocrit 37.8, platelets 356,000. PT and INR of 14.7 and 1.13. Sodium 133, potassium 4.8, chloride 100, CO2 20, BUN of 14, creatinine 0.8, glucose 100. AST of 260, ALT 224, alkaline phosphatase 268. Cardiac enzyme was negative. Plasma lactate of 1.3. Urinalysis was negative. Chest x- ray showed bilateral pneumonia. REVIEW OF SYSTEMS: She denied any fever, chills, blurred vision, dizziness. She did have generalized weakness, decreased appetite, nonproductive cough. Denied any shortness of breath. Denied any abdominal pain or constipation. She was positive for some diarrhea. Denied any nausea, vomiting, or burning or hurting with urination. PHYSICAL EXAMINATION: VITAL SIGNS: On arrival, she had a temperature of 97.8 degrees, pulse 75, respirations 18, blood pressure 149/82. Saturating 92% on room air. GENERAL: This is a 74-year-old female lying in the bed and answers questions appropriately. HEENT: Normocephalic, atraumatic. Normal ENT inspection. Oropharynx and nares are clear. EYES: Pupils are equal, round, reactive to light and accommodation. Extraocular movements are intact. NECK: Normal inspection normal range of motion. LUNGS: Clear to auscultation bilaterally with equal lung expansion and chest wall movement. HEART: With regular rate and rhythm. No murmurs, rubs, or gallops. ABDOMEN: Soft, nontender, nondistended. Bowel sounds are present x4 quadrants. MUSCULOSKELETAL: She had 4/5 strength x4 extremities. NEUROLOGICAL: Cranial nerves 2-12 appear grossly intact. ASSESSMENT: 1. Bilateral pneumonia. 2. Elevated liver function test. 3. Generalized weakness. 4. Hypertension. PLAN: She will be admitted to the medical unit placed on telemetry, O2 per protocol healthy heart diet, incentive spirometry. She will be placed on Zosyn 3.375 g IV q.6h, vancomycin per pharmacy protocol. We will check a right upper quadrant ultrasound in the a.m. Place on SCDs for DVT prophylaxis. DuoNeb q.4 hours. We will do a CT of the thorax with contrast. Continue serial lactates. Recheck a CBC, BMP in the a.m. Further orders after seen by attending. Dictated by CATY Leung for Jesus Acuña MD Addendum: Patient seen and examined by myself. Agree with CATY note. It reflects my assessment and plan. Patient is being admitted to hospital for bilateral pneumonia. Will start broad spectrum antibiotics and monitor patient closely. cc: CATY Leung MD Kirk L. Jackson, MD [facility]
--- NOTE | 2019-10-30 15:35 | EKG Report ---
Test Performed on : 10/30/2019 12:45:00 PM Test Reason : ED. NO order in [place] Blood Pressure : / mmHG Vent. Rate : 071 BPM Atrial Rate : 071 BPM P-R Int : 194 ms QRS Dur : 086 ms QT Int : 414 ms P-R-T Axes : 030 -09 027 degrees QTc Int : 449 ms Normal sinus rhythm. Septal infarct , age undetermined Abnormal ECG When compared with ECG of 10-OCT-2018 07:04, Septal infarct is now present Nonspecific T wave abnormality, improved in Lateral leads Unconfirmed Result
[2019-10-30] MEDS ORDERED: VANCOMYCIN 1,700 MG in NS 250 ML IV ONE (16:00)
--- NOTE | 2019-10-30 16:19 | Diag Imaging Result Doc PS360 ---
EXAM: US GB < RUQ (LIMITED) 10/30/2019 HISTORY: elevated lft TECHNIQUE: Abdominal ultrasound COMMENT: The pancreatic head body and tail are normal in appearance. There is slight dilatation of the infrarenal abdominal aorta to a maximum AP diameter of less than 19 mm. The visualized portion of the inferior vena cava is within normal limits. There is antegrade flow in the portal vein. The liver is otherwise unremarkable. There is a fold in the gallbladder neck. There are no stones and there is no sonographic Nash sign. There is no evidence of biliary dilatation the common bile duct measuring less than 4 mm. There are calcified irregular material in the spleen. The kidneys are without evidence of hydronephrosis or mass. There are no abnormal fluid collections. IMPRESSION: No evidence of acute disease. Electronically signed by Rasheed Rodriguez 10/30/2019 4:17 PM
[2019-10-30] MEDS: DUONEB (A & A) INH SCH ×3 (18:53→23:20)
[2019-10-31] MEDS: DUONEB (A & A) INH SCH ×6 (03:05→22:59)
[2019-10-31 05:33] LABS: BASO# 0.08 X1000 (0.0-0.2); BASO% 0.7 % (0.0-0.8); EOS# 0.32 X1000 (0.0-0.7); EOS% 2.9 % (0.0-10.0); HEMATOCRIT 39.9 % (37.0-47.0); HEMOGLOBIN 12.7 g/dL (12.0-16.0); IMM GRAN# 0.02 X1000 (0.0-0.04); IMM GRAN% 0.2 % (0.0-0.5); LYMPH# 1.97 X1000 (1.2-3.4); LYMPH% 17.9 % (20.5-51.1); MCH 29.7 PG (27-31); MCHC 31.8 g/dL (33-37); MCV 93.4 FL (81-99); MONO# 1.22 X1000 (0.11-0.59); MONO% 11.1 % (1.7-9.3); MPV 9.8 FL (7.4-10.4); NEUT# 7.38 X1000 (1.4-6.5); NEUT% 67.2 % (42.2-75.2); PLT 316 X1000 (130-400); RBC 4.27 XMIL (4.2-5.4); RDW 14.1 % (11.5-14.5); WBC 10.99 X1000 (4.8-10.8)
[2019-10-31 05:56] LABS: AGAP 12; ALB/GLOB RATIO 0.8; ALKALINE PHOSPHATASE 281 U/L (32-104); BUN 12 mg/dL (8-22); CALCIUM 9.3 mg/dL (8.8-10.2); CHLORIDE 106 mmol/L (98-107); COSMO 272; CREATININE 0.8 mg/dL (0.5-0.9); ESTIMATED GFR > 60; GLUCOSE 97 mg/dL (70-104); GOT 259 U/L (10-30); GPT 225 U/L (10-36); POTASSIUM 4.9 mmol/L (3.5-5.1); SODIUM 136 mmol/L (136-145); TCO2 18 mmol/L (25-35); TOTAL BILIRUBIN 0.39 mg/dL (0.20-1.00); TOTAL PROTEIN 6.8 g/dL (6.3-8.3)
[2019-10-31] MEDS: CELEBREX PO SCH (11:02)
[2019-10-31] MEDS: ZOSYN 3.375 GM in NS 50 ML IV SCH ×3 (11:02→23:05)
[2019-10-31] MEDS: XANAX PO SCH ×2 (11:03→20:42)
--- NOTE | 2019-10-31 11:23 | PROGRESS NOTE ---
DATE: 10/31/2019 SUBJECTIVE: Patient reported feeling fine. She is not requiring any oxygen supplementation, but she is still feeling very weak. OBJECTIVE: Vital Signs: Temperature 97.9 degrees, heart rate 82, respiratory 16, blood pressure 147/66, O2 saturation 95% on room air. General Examination: This is a 74-year-old female, lying in bed in no acute distress. Cardiovascular exam: S1 and S2 heard. No murmurs, gallops, or rubs. Regular rate and rhythm. Respiratory exam: Clear bilaterally to auscultation. No work of breathing or using accessory muscles. Abdomen: Soft, nontender to palpation. Bowel sounds present. No organomegaly. Extremities: No clubbing, cyanosis, or edema. Peripheral pulses present in both legs. Neurological exam: Patient alert and oriented x3. Moves 4 extremities. LABORATORY DATA: White cell count 10.99, hemoglobin 12.7, hematocrit 39.9, platelets 316 with a normal BMP. AST 259, ALT 225, alkaline phosphatase 281. ASSESSMENT AND PLAN: 1. Bilateral pneumonia. Patient has been placed on vancomycin and Zosyn. White cell count remains normal, and she is not requiring any oxygen supplementation or spiking any fevers. So at this point, we will continue with the same management. 2. Elevated liver function tests. We have ordered a hepatitis panel which is of course not available yet, and also an abdominal ultrasound, but definitely returned normal. We will continue to monitor liver function tests on a daily basis, and will probably do an magnetic resonance cholangiopancreatography on Saturday. 3. Hypertension. Blood pressure is under control. We will continue with the same management. 4. Disposition: We will continue to monitor this patient closely. cc: Jesus Acuña MD
--- NOTE | 2019-10-31 11:40 | Diag Imaging Result Doc PS360 ---
EXAM: CT THORAX W/CONTRAST INDICATION: recurrent pneumonia TECHNIQUE: This exam was performed using automated exposure control, adjustment of mA or kV according to patient size, and/or use of iterative reconstruction technique. COMPARISON: 03/05/2016 FINDINGS: There is advanced pulmonary emphysema. There are extensive patchy interstitial and airspace infiltrates seen throughout both lungs indicating edema, likely with a component of pneumonia as well. There is no pleural fluid collection and no pneumothorax. There is no significant cardiomegaly. There are calcified mediastinal and hilar lymph nodes indicating prior granulomatous disease. No other significant mediastinal lymphadenopathy is appreciated. Limited views of the upper abdomen are essentially unremarkable. There is no evidence of acute osseous abnormality. IMPRESSION: 1.Pulmonary emphysema. 2.Extensive interstitial and airspace infiltrates seen throughout both lungs indicating pulmonary edema and likely pneumonia. Electronically signed by Roshan Walker 10/31/2019 11:37 AM
[2019-10-31] MEDS ORDERED: ROCEPHIN 2 GM in NS 50 ML IV SCH (14:00)
[2019-10-31] MEDS ORDERED: VANCOMYCIN 1,200 MG in NS 250 ML IV SCH (16:00)
[2019-10-31] MEDS: LIPITOR PO SCH (20:42)
[2019-10-31] MEDS: PERICOLACE PO SCH (20:43)
[2019-10-31] MEDS: NORCO-10 PO PRN (20:49)
[2019-11-01] MEDS: DUONEB (A & A) INH SCH ×6 (03:05→23:25)
[2019-11-01] MEDS: ZOSYN 3.375 GM in NS 50 ML IV SCH ×4 (05:05→21:30)
[2019-11-01 05:53] LABS: BASO# 0.07 X1000 (0.0-0.2); BASO% 0.7 % (0.0-0.8); EOS# 0.22 X1000 (0.0-0.7); EOS% 2.1 % (0.0-10.0); HEMOGLOBIN 11.3 g/dL (12.0-16.0); IMM GRAN# 0.03 X1000 (0.0-0.04); IMM GRAN% 0.3 % (0.0-0.5); LYMPH# 1.78 X1000 (1.2-3.4); MCH 28.5 PG (27-31); MCHC 30.5 g/dL (33-37); MCV 93.2 FL (81-99); MONO# 1.06 X1000 (0.11-0.59); MONO% 10.1 % (1.7-9.3); MPV 10.1 FL (7.4-10.4); NEUT# 7.29 X1000 (1.4-6.5); NEUT% 69.8 % (42.2-75.2); PLT 353 X1000 (130-400); RBC 3.97 XMIL (4.2-5.4); RDW 14.4 % (11.5-14.5); WBC 10.45 X1000 (4.8-10.8)
[2019-11-01 06:09] LABS: ALB/GLOB RATIO 0.8; ALBUMIN 2.9 g/dL (3.5-5.0); CALCIUM 9.1 mg/dL (8.8-10.2); CREATININE 1.1 mg/dL (0.5-0.9); DIRECT BILIRUBIN 0.1 mg/dL (0.00-0.20); POTASSIUM 4.8 mmol/L (3.5-5.1); TOTAL BILIRUBIN 0.5 mg/dL (0.20-1.00); TOTAL PROTEIN 6.4 g/dL (6.3-8.3)
[2019-11-01] MEDS ORDERED: ZOFRAN ODT PO PRN (08:40)
[2019-11-01] MEDS ORDERED: TOPROL XL PO SCH (09:00)
[2019-11-01] MEDS: CELEBREX PO SCH (09:25)
[2019-11-01] MEDS: XANAX PO SCH (09:26)
[2019-11-01] MEDS ORDERED: LASIX IV ONE (11:11)
[2019-11-01] MEDS ORDERED: NS 1,000 ML IV ONE (11:12)
[2019-11-01] MEDS ORDERED: NS 1,000 ML IV SCH (12:00)
[2019-11-01] MEDS: LEVAQUIN 750 MG/D5W 750 MG/150 ML IVPB IV SCH (13:15)
[2019-11-01 13:33] LABS: ALLEN TEST YES; BE -1.6 mmoll (-3.0-3.0); BLOOD TYPE ARTERIAL; HCO3-(ACT) 23.6 mmoll (20.0-26.0); METHB 1.1 % (0.0-1.5); O2(CT) 15.1 mL/dL (15.0-23.0); O2HB 91.6 % (95.0-99.0); PCO2(98.6) 37 mmHg (35-45); PO2(98.6) 61 mmHg (60-100); SAMPLE BLOOD; SAO2 94.5 % (95.0-100.0); THB 11.7 g/dL (11.5-17.4)
[2019-11-01 13:36] LABS: MODALITY CANNULA
--- NOTE | 2019-11-01 13:45 | PROGRESS NOTE ---
DATE: 11/01/2019 SUBJECTIVE: Per nursing staff, the patient as been more confused. She started requiring oxygen supplementation. Her mentation started getting worse. Upon my examination, there has been a clear change compared with yesterday. She is more lethargic, more tachypneic and not able to answer any questions. Daughter is at bedside who confirmed all those findings. OBJECTIVE: Vital Signs: Temperature 97.8 degrees, heart rate 99, respiratory rate 18, blood pressure 114/56, O2 saturation 96% on 2 L nasal cannula. General: This is a 74-year-old, female lying in bed, mildly tachypneic, in mild respiratory distress. HEENT: Head is normocephalic, atraumatic. Neck: No JVD noted. No carotid bruits. No lymphadenopathy. No thyromegaly. Cardiovascular: S1, S2 heard. No murmurs, gallops, or rubs. Regular rate and rhythm. Respiratory: Coarse breath sounds noted all over both pulmonary harkins with some wheezing. Patient not using any accessory muscles or having work of breathing. Abdomen: Soft, nontender to palpation. Bowel sounds present. No organomegaly. Extremities: No clubbing, cyanosis, or edema. Peripheral pulses present in both legs. Neurological: Patient is alert and oriented x3. Moves all 4 extremities. LABORATORY DATA: White cell count 10.45, hemoglobin 11.3, hematocrit 37, platelets 353,000 with normal BMP except elevated creatinine of 1.1. AST 200, ALT 194, alkaline phosphatase 215. ASSESSMENT AND PLAN: 1. Acute respiratory failure secondary to bilateral pneumonia. That condition is getting worse. The patient is requiring more oxygen supplementation and clinically she is more is sleepy. So, at this point I am going to transfer this patient to the Intensive Care Unit. Because of mild elevation of the renal function, I will change vancomycin for Zyvox. White cell count remains normal. She is not spiking any fever. We are going to check an ABG STAT and will send this patient to the Intensive Care Unit. The CT of the chest shows also emphysema and pulmonary edema. We will start Lasix 40 mg IV twice daily. 2. Elevated liver function tests. Hepatitis panel is still pending but. Considering, we did not find any reason in the abdominal ultrasound to see why she has elevated LFTs, I will probably need to do an MRI of the abdomen. I will see how this patient into tomorrow. 3. Acute kidney injury. Creatinine is mildly elevated. At this point, we will going to change antibiotics from vancomycin to Zyvox. 4. Hypertension blood pressure is under control. We will continue with the same management. DISPOSITION: The patient has been getting worse in the last 24 hours. At this point, I will definitely transfer her to the Intensive Care Unit. TIME SPENT: Critical time spent; 35 minutes. cc: Jesus Acuña MD
[2019-11-01] MEDS: ZYVOX 600 MG/D5W 600 MG/300 ML IVPB IV SCH (15:01)
[2019-11-01] MEDS: NORCO-10 PO PRN (19:36)
[2019-11-01] MEDS: LASIX IV SCH (20:05)
[2019-11-01] MEDS: PERICOLACE PO SCH (20:05)
[2019-11-01] MEDS: LIPITOR PO SCH (20:05)
--- NOTE | 2019-11-01 22:47 | CONSULTATION ---
DATE OF CONSULTATION: 11/01/2019 CHIEF COMPLAINT: Generalized weakness and cough. HISTORY OF PRESENT ILLNESS: This is a 74-year-old female who has a complaint of weakness and cough. She states that she has had pneumonia 3 times since [place] with recent hospital admits at [facility]. Since her discharge from the hospital she states that she just has not been feeling better. Recent chest CT revealed pulmonary emphysema and extensive interstitial and airspace infiltrates throughout both lungs and likely pneumonia. PAST MEDICAL HISTORY: Hypertension, osteoarthritis, osteoporosis, recurrent UTIs, CHF and COPD. PAST SURGICAL HISTORY: Hysterectomy, neck surgery, right shoulder surgery and bladder mesh. FAMILY HISTORY: Father passed in his 20s of an MVC and her mother had an [place]. SOCIAL HISTORY: Currently lives with her . Denies tobacco, alcohol or illicit drug use. ALLERGIES: Sulfa. HOME MEDICATIONS: Alprazolam 1 mg p.o. b.i.d., atorvastatin calcium 20 mg p.o. every bedtime and celecoxib 200 mg p.o. daily, cephalexin1 capsule p.o. t.i.d., estradiol 42.5 mg as directed, Pepcid 1 tablet p.o. daily, furosemide 20 mg p.o. p.r.n., Zuni 10/325 t.i.d. p.r.n., metoprolol ER 1 tablet p.o. daily, Macrobid 100 mg p.o. daily, Senna plus tablet 2 tablets p.o. every bedtime and tramadol/acetaminophen 37.5/325 mg p.o. every 6 hours. REVIEW OF SYSTEMS: A 10-point review of systems was obtained and the pertinent is listed within the HPI, otherwise noncontributory. LABORATORY DATA: White blood cells 10.45. Red blood cells 3.97. Hemoglobin 11.3. Hematocrit 37.0. PH 7.40. PCO2 of 37. PO2 of 61. HCO3 of 23.6. Base excess -1.6. Oxyhemoglobin 91.6. Sodium 138. Potassium 4.8. Chloride 105. Carbon dioxide 21. BUN 18. Creatinine 1.1. Glucose 111. Calcium 9.1. AST 200. ALT 194. Alkaline phosphatase 250. Total protein 6.4. Albumin 2.9. Globulin 3.5. DIAGNOSTIC DATA: Mentioned in HPI. ASSESSMENT AND PLAN: 1. Acute respiratory failure secondary to bilateral pneumonia. She has gotten worse requiring more oxygen supplementation represented by increased sleepiness. We will continue to check ABGs and continue supplemental oxygen. Continue antibiotics and bronchodilators. 2. Elevated liver function tests. Hepatitis panel is pending. 3. Acute kidney injury. Continue antibiotics. 4. Hypertension. We will continue to monitor. TIME: Spent 33 minutes with this patient. Thank you for the courtesy of this consult. Dictated by CATY Baugh for Inez Marroquin MD cc: CATY Baugh MD
[2019-11-02] MEDS: ZYVOX 600 MG/D5W 600 MG/300 ML IVPB IV SCH ×2 (02:03→14:48)
[2019-11-02] MEDS: ZOSYN 3.375 GM in NS 50 ML IV SCH ×5 (04:17→22:28)
[2019-11-02 05:03] LABS: ALLEN TEST YES; BE 1.8 mmoll (-3.0-3.0); BLOOD TYPE ARTERIAL; HCO3-(ACT) 26.3 mmoll (20.0-26.0); METHB 1.1 % (0.0-1.5); MODALITY CANNULA; O2(CT) 15.4 mL/dL (15.0-23.0); O2HB 94.8 % (95.0-99.0); PCO2(98.6) 37 mmHg (35-45); PO2(98.6) 73 mmHg (60-100); SAMPLE BLOOD; SAO2 97.7 % (95.0-100.0); THB 11.5 g/dL (11.5-17.4); pH(98.6) 7.45 (7.35-7.45)
[2019-11-02] MEDS: DUONEB (A & A) INH SCH ×6 (06:08→23:40)
[2019-11-02 07:08] LABS: ALB/GLOB RATIO 0.7; ALBUMIN 2.8 g/dL (3.5-5.0); CALCIUM 8.8 mg/dL (8.8-10.2); DIRECT BILIRUBIN 0.1 mg/dL (0.00-0.20); POTASSIUM 4.3 mmol/L (3.5-5.1); TOTAL BILIRUBIN 0.59 mg/dL (0.20-1.00); TOTAL PROTEIN 6.7 g/dL (6.3-8.3)
[2019-11-02 07:09] LABS: BASO# 0.08 X1000 (0.0-0.2); BASO% 0.7 % (0.0-0.8); HEMATOCRIT 37.8 % (37.0-47.0); IMM GRAN# 0.12 X1000 (0.0-0.04); LYMPH# 1.52 X1000 (1.2-3.4); LYMPH% 12.9 % (20.5-51.1); MCH 29.1 PG (27-31); MCHC 31.7 g/dL (33-37); MCV 91.7 FL (81-99); MONO# 1.49 X1000 (0.11-0.59); MONO% 12.7 % (1.7-9.3); MPV 10.9 FL (7.4-10.4); NEUT# 7.83 X1000 (1.4-6.5); NEUT% 66.7 % (42.2-75.2); PLT 327 X1000 (130-400); RBC 4.12 XMIL (4.2-5.4); WBC 11.74 X1000 (4.8-10.8)
--- NOTE | 2019-11-02 07:10 | PROGRESS NOTE ---
DATE: 11/02/2019 SUBJECTIVE: The patient has been transferred to the intensive care unit yesterday because she was more lethargic, more tachypneic, and not able to answer any questions. Today, she is much better, awake and alert, definitely not tachypneic at all, and we are weaning off from oxygen. She is requiring now 2 L of oxygen by nasal cannula. She reports not feeling short of breath. Denies any fever or chills. OBJECTIVE: Vital Signs: Temperature 97.3 degrees, heart rate 95, respiratory rate 20, blood pressure 161/81, O2 saturation 95% on 2 L nasal cannula. General: This is a 74-year-old, female, lying in bed in no acute distress. HEENT: Head is normocephalic, atraumatic. Neck: No JVD noted. No carotid bruits. No lymphadenopathy. No thyromegaly. Cardiovascular: S1, S2 heard. No murmurs, gallops, or rubs. Regular rate and rhythm. Respiratory: Coarse breath sounds noted all over both pulmonary harkins, mostly noted in both bases. The patient is not using any accessory muscles or having work of breathing. Abdomen: Soft, nontender to palpation. Bowel sounds present. No organomegaly. Extremities: No clubbing, cyanosis, or edema. Peripheral pulses present in both legs. Neurological: The patient is alert and oriented x3. Moves all 4 extremities. LABORATORY DATA: ABG shows pH 7.45, with pCO2 of 35, and pO2 of 73; that was taken on 2 L of oxygen by nasal cannula. The CBC and BMP are still pending at the time of my dictation. ASSESSMENT AND PLAN: 1. Acute respiratory failure secondary to bilateral pneumonia. Condition is definitely getting much better. Her oxygen needs are definitely coming down. Now, she is requiring 2 liters of oxygen by nasal cannula. The patient is receiving Zyvox and Zosyn. She is not spiking any fever. ABG from this morning shows good gas exchange. The patient has been started on Lasix 40 mg intravenously twice daily for pulmonary edema. CT of the chest shows also emphysema, although she has not been a smoker. Will transfer this patient out of the intensive care unit today. 2. Elevated liver function tests. Hepatitis panel is still pending. Because those remain very elevated, will do magnetic resonance cholangiopancreatography today and will go from there. 3. Acute kidney injury. From yesterday, creatinine was slightly elevated at 1.1. Will be waiting for results of the BMP from today, and will go from there. 4. Hypertension. Blood pressure is under control. Will continue with the same management, and restart home medications. 5. Disposition. The patient is doing much better. Will transfer her out of the intensive care unit today to a normal room. cc: Jesus Acuña MD
[2019-11-02] MEDS: NORCO-10 PO PRN (08:58)
[2019-11-02] MEDS: LASIX IV SCH ×2 (08:58→21:05)
[2019-11-02] MEDS ORDERED: TOPROL XL PO SCH (09:00)
[2019-11-02] MEDS: XANAX PO SCH ×2 (09:00→21:04)
[2019-11-02] MEDS: CARDIZEM PO SCH ×3 (09:48→21:04)
--- NOTE | 2019-11-02 11:17 | Diag Imaging Result Doc PS360 ---
EXAM: MRI ABDOMEN W/WO CONTRAST 11/02/2019 HISTORY: elevated LFTs TECHNIQUE: Axial T2, water 3-D, in and out of phase T1, water 3-D multiphase, radial T2 MRCP, coronal T2 and water 3-D. COMMENT: The cystic duct apparently inserts fairly low on the common bile duct.. There is no evidence of obstruction of the pancreatic duct. The common hepatic duct is somewhat distended at 10 mm. There is smooth tapering of the distal common bile duct. There is no evidence of abnormal gadolinium enhancement. There are no apparent filling defects in the common bile duct. There are some cortical cysts present in the left kidney. There is no evidence of significant adenopathy. IMPRESSION: Dilatation of the common hepatic and common bile ducts of uncertain significance. Electronically signed by Rasheed Rodriguez 11/02/2019 11:15 AM
[2019-11-02 11:58] LABS: HEPATITIS PROFILE ACUTE SEE COMMENTS
[2019-11-02] MEDS: LEVAQUIN 750 MG/D5W 750 MG/150 ML IVPB IV SCH (13:27)
--- NOTE | 2019-11-02 14:28 | EKG Report ---
Test Performed on : 11/02/2019 09:04:36 AM Test Reason : increased HR Blood Pressure : / mmHG Vent. Rate : 118 BPM Atrial Rate : 118 BPM P-R Int : 180 ms QRS Dur : 084 ms QT Int : 312 ms P-R-T Axes : 044 -22 -01 degrees QTc Int : 437 ms Sinus tachycardia. with blocked premature atrial complexes. with occasional premature ventricular com plexes. Nonspecific T wave abnormality Abnormal ECG When compared with ECG of 02-NOV-2019 08:35, (Unconfirmed) Nonspecific T wave abnormality, worse in Lateral leads Confirmed by Sam Land MD ([id number]) on 11/03/2019 7:37:22 PM
--- NOTE | 2019-11-02 14:28 | EKG Report ---
Test Performed on : 11/02/2019 08:35:30 AM Test Reason : increased HR Blood Pressure : / mmHG Vent. Rate : 119 BPM Atrial Rate : 119 BPM P-R Int : 176 ms QRS Dur : 084 ms QT Int : 344 ms P-R-T Axes : 052 -19 007 degrees QTc Int : 483 ms Sinus tachycardia. with premature supraventricular complexes. and with occasional premature ventricul ar complexes. Nonspecific T wave abnormality Abnormal ECG When compared with ECG of 30-OCT-2019 12:45, (Unconfirmed) premature ventricular complexes. are now present premature supraventricular complexes. are now present Vent. rate has increased BY 48 BPM Criteria for Septal infarct are no longer present T wave inversion more evident in Inferior leads Confirmed by Sam Land MD ([id number]) on 11/03/2019 7:36:15 PM
--- NOTE | 2019-11-02 14:52 | ECHO REPORT ---
ORDER DATE: 11/01/2019 INTERPRETING PHYSICIAN: Dr. Eladio Staples. ECHOCARDIOGRAPHIC MEASUREMENTS: 1. Interventricular septum: 1.3 cm. 2. Left ventricular posterior wall: 1.1 cm. 3. Diastolic diameter: 4.0 cm. 4. Left atrium: 4.1 cm. 5. Aorta: 3.4 cm. SUMMARY OF THE 2-DIMENSIONAL IMAGIN. Normal left ventricular cavity size. 2. Mild left ventricular hypertrophy. 3. Estimated ejection fraction of 60 to 65%. 4. Aortic valve leaflets were trileaflet. 5. Mitral valve was normal. 6. Tricuspid valve was normal. 7. Pulmonic valve was normal. 8. Diastolic dysfunction, indeterminate. 9. Peak velocity across the aortic valve less than 2 meters per second. 10. There is no aortic stenosis. 11. There is moderate aortic regurgitation. 12. There is mild mitral regurgitation. 13. Mild tricuspid regurgitation. 14. Peak velocity across the tricuspid valve was 2.1 meters per second. 15. Pulmonary artery systolic pressure of 32 mmHg. 16. There is no pericardial effusion or obvious intracardiac mass or thrombus seen. 17. There is mitral annular calcification. cc: MD Jesus Vergara MD
--- NOTE | 2019-11-02 17:52 | PROVIDER PROGRESS NOTE ---
Progress Note Dr. Marroquin Progress Note/Pulmonary and or critical care Subjective: The patient is lying in bed with no acute distress noted. She is awake and alert. She states she is feeling better. She has UTI over 3 weeks. She reports no significant cough or SOB. She just completed echocardiogram. Objective: Vital Signs: T 97.3(no fever in last 24 hours), NH 98, RR 22, BP 132/71 and SaO2 94% on NC 2L. Physical Examination: General: Lying in bed with no acute distress noted. HEENT: Normocephalic. Trachea midline. Mucosa pink and moist. PERRL. Chest: Even and unlabored. No increased work of breathing noted. Symmetrical excursion. Auscultation reveals coarse breathing sounds globally with no wheezing noted at this time. CVS: S1 and S2 appreciated. Abdomen: Soft. Non-distended. Nontender. Normoactive bowel sounds noted. Extremities: No edema. No cyanosis. No clubbing. Neuro: A/O x3. Speech fluent. Follow commands. Labs and Radiology: Laboratory Results 10/30/19 11/02/19 11/02/19 12:58 04:30 04:52 WBC RBC Hgb Hct MCV MCH MCHC RDW Std Deviation Plt Count MPV Immature Gran % (Auto) Neut % (Auto) Lymph % (Auto) Raw[place]ins % (Auto) Eos % (Auto) Baso % (Auto) Immature Gran # (Auto) Neut # (Auto) Lymph # (Auto) Raw[place]ins # (Auto) Eos # (Auto) Baso # (Auto) Specimen Type ARTERIAL Sample Site R RADIAL pH 7.45 pCO2 37 pO2 73 HCO3 26.3 H Base Excess 1.8 Oxyhemoglobin 94.8 L ABG O2 Sat (Calculated) 15.4 ABG O2 Saturation 97.7 ABG Carboxyhemoglobin 2.00 ABG Methemoglobin 1.1 Eder Test YES A-a O2 Difference 109.0 Total Hemoglobin 11.5 Lactate 1.60 Liter Flow 3.0 Blood Gas Modality CANNULA FiO2 % 32.0 Sodium Potassium Chloride Carbon Dioxide Anion Gap BUN Creatinine Estimated GFR/1.73 m2 BUN/Creatinine Ratio Glucose Calculated Osmolality Calcium Total Bilirubin Direct Bilirubin AST ALT Alkaline Phosphatase Uey-[id number] Pept 1306 H Total Protein Albumin Globulin Albumin/Globulin Ratio Hepatitis Panel SEE COMMENTS 11/02/19 11/02/19 06:00 06:00 WBC 11.74 H RBC 4.12 L Hgb 12.0 Hct 37.8 MCV 91.7 MCH 29.1 MCHC 31.7 L RDW Std Deviation 14.0 Plt Count 327 MPV 10.9 H Immature Gran % (Auto) 1.0 H Neut % (Auto) 66.7 Lymph % (Auto) 12.9 L Rawlins % (Auto) 12.7 H Eos % (Auto) 6.0 Baso % (Auto) 0.7 Immature Gran # (Auto) 0.12 H Neut # (Auto) 7.83 H Lymph # (Auto) 1.52 Rawlins # (Auto) 1.49 H Eos # (Auto) 0.70 Baso # (Auto) 0.08 Specimen Type Sample Site pH pCO2 pO2 HCO3 Base Excess Oxyhemoglobin ABG O2 Sat (Calculated) ABG O2 Saturation ABG Carboxyhemoglobin ABG Methemoglobin Eder Test A-a O2 Difference Total Hemoglobin Lactate Liter Flow Blood Gas Modality FiO2 % Sodium 139 Potassium 4.3 Chloride 102 Carbon Dioxide 23 L Anion Gap 14 BUN 16 Creatinine 1.0 H Estimated GFR/1.73 m2 54 BUN/Creatinine Ratio 16 Glucose 99 Calculated Osmolality 279 Calcium 8.8 Total Bilirubin 0.59 Direct Bilirubin 0.10 AST 170 H ALT 172 H Alkaline Phosphatase 250 H [id number] Pept Total Protein 6.7 Albumin 2.8 L Globulin 3.9 Albumin/Globulin Ratio 0.7 Hepatitis Panel Assessment: Acute hypoxemic respiratory failure. Bilateral pneumonia. CT thorax with contrast on 10/31/19 showed pulmonary emphysema and extensive interstitial and airspace infiltrates seen throughout both lungs indicating pulmonary edema and likely pneumonia. COPD with pulmonary emphysema. Elevated LFTs. Acute kidney injury, mild. UTI. Encephalopathy. Generalized weakness. Plan: Continue supplemental oxygen. We titrate supplemental oxygen to patients needs per clinical protocols. We will monitor patients response closely. We will follow up CXR and proBNP tomorrow. Continue antibiotics including Levaquin, Linezolid and Zosyn. Continue bronchodilators. Continue diuretic as tolerated. GI and DVT prophylaxis.
[2019-11-02] MEDS: PERICOLACE PO SCH (21:04)
[2019-11-02] MEDS: LIPITOR PO SCH (21:04)
[2019-11-03] MEDS: NORCO-10 PO PRN ×2 (03:03→18:01)
[2019-11-03] MEDS: CARDIZEM PO SCH ×4 (03:04→21:06)
[2019-11-03] MEDS: ZYVOX 600 MG/D5W 600 MG/300 ML IVPB IV SCH ×2 (03:04→13:48)
[2019-11-03] MEDS: DUONEB (A & A) INH SCH ×5 (03:58→20:32)
[2019-11-03] MEDS: ZOSYN 3.375 GM in NS 50 ML IV SCH ×4 (04:32→23:34)
[2019-11-03 07:23] LABS: BASO# 0.05 X1000 (0.0-0.2); BASO% 0.4 % (0.0-0.8); EOS# 0.27 X1000 (0.0-0.7); HEMATOCRIT 39.1 % (37.0-47.0); HEMOGLOBIN 12.5 g/dL (12.0-16.0); IMM GRAN# 0.06 X1000 (0.0-0.04); IMM GRAN% 0.5 % (0.0-0.5); LYMPH# 1.63 X1000 (1.2-3.4); LYMPH% 12.4 % (20.5-51.1); MCH 29.2 PG (27-31); MCV 91.4 FL (81-99); MONO# 1.23 X1000 (0.11-0.59); MONO% 9.3 % (1.7-9.3); NEUT# 9.95 X1000 (1.4-6.5); NEUT% 75.4 % (42.2-75.2); PLT 390 X1000 (130-400); RBC 4.28 XMIL (4.2-5.4); RDW 13.8 % (11.5-14.5); WBC 13.19 X1000 (4.8-10.8)
--- NOTE | 2019-11-03 07:37 | Diag Imaging Result Doc PS360 ---
CHEST-1 VIEW - 11/03/2019 INDICATION: SOB COMPARISON: 10/30/2019 FINDINGS: There is worsening in the diffuse bilateral infiltrates, worst in the upper lobes. Lung volumes are lower. Heart size is top normal. No pneumothorax or pleural effusion. IMPRESSION: Lower lung volumes. Worsening in the ill-defined diffuse infiltrates compatible with pulmonary edema and/or pneumonia. Electronically signed by Rafal Velazquez 11/03/2019 7:35 AM
[2019-11-03 07:48] LABS: ALB/GLOB RATIO 0.8; CREATININE 1.3 mg/dL (0.5-0.9); DIRECT BILIRUBIN 0.1 mg/dL (0.00-0.20); POTASSIUM 3.9 mmol/L (3.5-5.1); TOTAL BILIRUBIN 0.57 mg/dL (0.20-1.00); TOTAL PROTEIN 6.8 g/dL (6.3-8.3)
[2019-11-03] MEDS: LASIX IV SCH ×2 (08:00→21:07)
[2019-11-03] MEDS: XANAX PO SCH ×2 (08:00→21:06)
--- NOTE | 2019-11-03 08:46 | PROGRESS NOTE ---
DATE: 11/03/2019 SUBJECTIVE: The patient reports feeling much better. She is breathing okay. She is more alert and oriented. OBJECTIVE: Vital Signs: Temperature 97.8 degrees, heart rate 119, respiratory rate 17, blood pressure 102/67, O2 saturation 96% on 2 L nasal cannula. General: This is a 74-year-old, female, lying in bed in no acute distress. Cardiovascular: S1, S2 heard. No murmurs, gallops, or rubs. Regular rate and rhythm. Respiratory: Coarse breath sounds noted in all pulmonary harkins, a little bit better in comparing with yesterday. The patient is not using any accessory muscles or having work of breathing. Abdomen: Soft, nontender to palpation. Bowel sounds present. No organomegaly. Extremities: No clubbing, cyanosis, or edema. Peripheral pulses present in both legs. Neurological: The patient is alert and oriented x3. Moves all 4 extremities. LABORATORY DATA: White cell count 13.19, hemoglobin 10.5, hematocrit 39.1, platelets 390,000. Creatinine is 1.3, sodium 133. AST 145, ALT 155, alkaline phosphatase 254. ProBNP 642. ASSESSMENT AND PLAN: 1. Acute respiratory failure secondary to bilateral pneumonia. Her condition clinically is getting better. She reports breathing better, and only requiring 3 liters of oxygen by nasal cannula. At this point, will continue with current management, in this case Zyvox and Zosyn. She is not spiking any fever. ABG continues to show good gas exchange. For pulmonary edema, will continue with Lasix 40 mg intravenously every 24 hours. Will continue to monitor. 2. Elevated liver function tests. Those numbers are getting better. Hepatitis panel returned, and it is completely negative. We have done an abdomen MRI/magnetic resonance cholangiopancreatography, which basically showed dilatation of the common hepatic and common bile duct of uncertain significance. Gastroenterology has been consulted. Will follow recommendations. 3. Acute kidney injury. Creatinine is slightly elevated at 1.3. Will continue to monitor. 4. Hypertension. Blood pressure is under control. Will continue the same management. 5. Disposition. At this point, will continue with current management. Will follow recommendations from Gastroenterology. cc: MD LAILA Medina
[2019-11-03] MEDS: LACTULOSE PO SCH ×2 (10:24→21:06)
[2019-11-03] MEDS ORDERED: GLYCERIN ADULT PR ONE (11:28)
[2019-11-03] MEDS: LEVAQUIN 750 MG/D5W 750 MG/150 ML IVPB IV SCH (12:07)
--- NOTE | 2019-11-03 12:33 | GASTROENTEROLOGY CONSULTATION ---
DATE: 11/03/2019 REASON FOR CONSULTATION: Abnormal MRI. HISTORY OF PRESENT ILLNESS: This is a 74-year-old, female who is known to our practice. We had just seen her in the office on 10/08/2019. At that time, she had complained of some abdominal discomfort and stomach pain. She was having problems with constipation. At that office visit, we had recommended she cleanse her colon with a liter of colon prep and start Shanda-Colace 2 tablets every day. She was also prescribed Protonix 20 mg daily. She was also given Zofran as needed for nausea. The patient has had problems with poor appetite over the last month or so. She has had some weight loss. She has had frequent pneumonia, three different times since Terry. She came into the hospital with generalized weakness, cough, decreased appetite, and reported diarrhea. When I saw the patient today, she was actually on the bedside commode, trying to have a bowel movement. She has had some problems actually with constipation. was at the bedside and states she has not had a bowel movement in 5 days. The patient had findings of elevated liver function tests on admission. On admission, her liver function tests showed a total bilirubin of 0.45, AST 260, ALT 224, alkaline phosphatase 268. Today, her total bilirubin is 0.57, AST 145, ALT 155, alkaline phosphatase 247. She had an abdominal ultrasound on 10/30/2019 that showed a slight dilation of the abdominal aorta. No stones noted in the gallbladder. No reported evidence of biliary dilatation to the common bile duct, which measured 4 mm. She had an MRI of the abdomen on 11/02/2019. Findings showed cystic duct inserting low in the common bile duct. No evidence of obstruction of the pancreatic duct. Common hepatic duct somewhat distended at 10 mm. There was smooth tapering of the distal common bile duct. There was no evidence of abnormal gadolinium enhancement. There were no apparent filling defects in the common bile duct. The patient currently denies abdominal pain except for a generalized discomfort due to constipation. She had a hepatitis panel that was nonreactive. She has had a urine culture that showed Pseudomonas aeruginosa. She is currently on antibiotics. She had a negative influenza test. Blood culture showing no growth after 48 hours. Chest x-ray today showed lower lung volumes with worsening ill- defined diffuse infiltrates, compatible with pulmonary edema and/or pneumonia. PAST MEDICAL HISTORY: COPD, congestive heart failure, hypertension, osteoporosis, osteoarthritis, recurrent urinary tract infections, recurrent pneumonia, degenerative joint disease, history of irregular heart rate, history of stroke, history of heart murmur. PAST SURGICAL HISTORY: Hysterectomy, neck surgery, right shoulder surgery, bladder mesh, colonoscopy in 2016, EGD in 2019. ALLERGIES: Sulfonamides causing flushing, Bactrim with flushing. HOME MEDICATIONS: Alprazolam 1 mg twice a day, atorvastatin 20 mg every night, Celecoxib 200 mg daily, cephalexin 1 three times a day, Estrace vaginal cream as directed, famotidine 1 tablet daily, furosemide 20 mg as needed, [place] 10/325 three times a day as needed, metoprolol daily, nitrofurantoin 100 mg daily, senna 2 every night, tramadol 37.5/325 every 6 hours as needed. SOCIAL HISTORY: No alcohol. Quit tobacco use in 2001. She has 2 children. She is . She is retired from [employer]. FAMILY HISTORY: Positive for colon cancer in her sister, heart disease in her mother and grandfather, hypertension in grandfather, ulcer in father. Mother from a myocardial infarction. Father in his 20s from an MVC. REVIEW OF SYSTEMS: Per history of present illness. PHYSICAL EXAMINATION: Vital Signs: Temperature 97.8 degrees, pulse 119, respirations 17, blood pressure 102/67. General: The patient is awake and alert at the time of my visit. She was up on the bedside commode. She has oxygen in place. No acute respiratory distress noted while up on the bedside commode. Cardiovascular: Regular rate and rhythm. Respiratory: With some coarse breath sounds noted. Abdomen: Soft, nontender. Bowel sounds present. Extremities: No lower extremity edema noted. Neurologic: Cranial nerves 2 through 12 grossly intact. DIAGNOSTIC RESULTS: Laboratory: Hematology: WBC 13.19, hemoglobin 12.5, hematocrit 39.1, MCV 91.4, platelets 390,000. Chemistry: Sodium 133, potassium 3.9, chloride 95, CO2 of 23, BUN 22, creatinine 1.3, glucose 131. Total bilirubin 0.57, AST 145, ALT 155, alkaline phosphatase 247. Imaging studies including ultrasound and MRI as described above in the dictation. There was common hepatic duct distention. No evidence of filling defects in the common bile duct. Ultrasound showed no evidence of common bile duct dilation measuring 4 mm. ASSESSMENT AND PLAN: 1. Acute respiratory failure secondary to bilateral pneumonia. Continue current management. Continue respiratory management and antibiotics. 2. Generalized weakness. Continue supportive care. Continue intravenous fluids. 3. Elevated liver function tests. Hepatitis panel was negative. MRI and ultrasound reviewed, showed dilation of the hepatic duct but really no dilation of the common bile duct. Bilirubin is normal, showing no evidence of biliary abnormalities. Transaminitis most likely secondary to infectious process with no evidence of biliary disease that would currently require intervention. Her liver function tests have improved since admission. Would recommend to continue current management and we will continue to follow. We will continue to follow her liver function tests. 4. Constipation. Patient has been seen in the office in September and was given a clean-out for the colon and started on Shanda-Colace that she says is not really helping. She has been given laxatives since hospitalization. She is asking for suppository so I have added a glycerin suppository for today. Further plans will be made according to her results. As noted above, we will continue to follow and monitor liver function tests, recommend repeating tomorrow. Currently no evidence of biliary disease that would require intervention but further plans to be made according to her progress. I have discussed this case with Dr. Farrar. Thank you for this consultation. Dictated by CATY Lopez for Issac Farrar MD cc: CATY Sevilla MD [facility]
[2019-11-03] MEDS ORDERED: ZOFRAN IV ONE (15:03)
[2019-11-03] MEDS ORDERED: ZOFRAN IV PRN (15:03)
--- NOTE | 2019-11-03 16:56 | PROVIDER PROGRESS NOTE ---
Progress Note Dr. Marroquin Progress Note/Pulmonary and or critical care Subjective: The patient is lying in bed with no acute distress noted. She is awake and alert. She is complaining of constipation at this time. GI team is at the bedside. Patients reports patient had been treated with pneumonia last July in [place]. Objective: Vital Signs: T 97.8(no fever in last 24 hours), TN 119, RR 17, BP 102/67 and SaO2 96% on NC 2L. Physical Examination: General: Lying in bed with no acute distress noted. HEENT: Normocephalic. Trachea midline. Mucosa pink and moist. PERRL. Chest: Even and unlabored. No increased work of breathing noted. Symmetrical excursion. Auscultation reveals diminished breathing sounds bilaterally. CVS: S1 and S2 appreciated. Abdomen: Soft. Non-distended. Nontender. Normoactive bowel sounds noted. Extremities: No edema. No cyanosis. No clubbing. Neuro: A/O x3. Speech fluent. Follow commands. Labs and Radiology: Laboratory Results 11/03/19 11/03/19 11/03/19 06:51 06:51 06:51 WBC 13.19 H RBC 4.28 Hgb 12.5 Hct 39.1 MCV 91.4 MCH 29.2 MCHC 32.0 L RDW Std Deviation 13.8 Plt Count 390 MPV 10.0 Immature Gran % (Auto) 0.5 Neut % (Auto) 75.4 H Lymph % (Auto) 12.4 L [place] % (Auto) 9.3 Eos % (Auto) 2.0 Baso % (Auto) 0.4 Immature Gran # (Auto) 0.06 H Neut # (Auto) 9.95 H Lymph # (Auto) 1.63 [place] # (Auto) 1.23 H Eos # (Auto) 0.27 Baso # (Auto) 0.05 Sodium 133 L Potassium 3.9 Chloride 95 L Carbon Dioxide 23 L Anion Gap 15 BUN 22 Creatinine 1.3 H Estimated GFR/1.73 m2 40 BUN/Creatinine Ratio 17 Glucose 131 H Calculated Osmolality 272 Calcium 9.0 Total Bilirubin 0.57 Direct Bilirubin 0.10 AST 145 H ALT 155 H Alkaline Phosphatase 247 H [id number] Pept 642 H Total Protein 6.8 Albumin 3.0 L Globulin 3.8 Albumin/Globulin Ratio 0.8 Assessment: Acute hypoxemic respiratory failure. Bilateral pneumonia. CT thorax with contrast on 10/31/19 showed pulmonary emphysema and extensive interstitial and airspace infiltrates seen throughout both lungs indicating pulmonary edema and likely pneumonia. CXR today shows lower lung volumes, worsening in the ill-defined diffuse infiltrates compatible with pulmonary edema +/- pneumonia. COPD with pulmonary emphysema. Elevated LFTs. Acute kidney injury, mild. UTI. Encephalopathy. Improved. Generalized weakness. DNR 2. Plan: Continue supplemental oxygen. We titrate supplemental oxygen to patients needs per clinical protocols. We will monitor patients response closely. Continue antibiotics including Levaquin, Linezolid and Zosyn. Continue bronchodilators. Continue diuretic. GI and DVT prophylaxis.
[2019-11-03] MEDS: LIPITOR PO SCH (21:06)
[2019-11-03] MEDS: PERICOLACE PO SCH (21:07)
[2019-11-04] MEDS: DUONEB (A & A) INH SCH ×4 (00:06→11:37)
[2019-11-04] MEDS: ZYVOX 600 MG/D5W 600 MG/300 ML IVPB IV SCH ×2 (05:01→15:37)
[2019-11-04] MEDS: NORCO-10 PO PRN (05:01)
[2019-11-04] MEDS: CARDIZEM PO SCH ×2 (05:02→10:04)
[2019-11-04] MEDS: ZOSYN 3.375 GM in NS 50 ML IV SCH ×2 (08:06→15:37)
[2019-11-04 08:09] LABS: BASO# 0.06 X1000 (0.0-0.2); BASO% 0.5 % (0.0-0.8); EOS# 0.29 X1000 (0.0-0.7); EOS% 2.3 % (0.0-10.0); HEMATOCRIT 37.8 % (37.0-47.0); IMM GRAN# 0.06 X1000 (0.0-0.04); IMM GRAN% 0.5 % (0.0-0.5); LYMPH# 1.61 X1000 (1.2-3.4); LYMPH% 12.7 % (20.5-51.1); MCH 28.9 PG (27-31); MCHC 31.7 g/dL (33-37); MCV 91.1 FL (81-99); MONO# 1.28 X1000 (0.11-0.59); MONO% 10.1 % (1.7-9.3); MPV 9.9 FL (7.4-10.4); NEUT% 73.9 % (42.2-75.2); PLT 395 X1000 (130-400); RBC 4.15 XMIL (4.2-5.4); RDW 13.8 % (11.5-14.5)
[2019-11-04 08:28] LABS: ALB/GLOB RATIO 0.8; ALBUMIN 2.9 g/dL (3.5-5.0); CALCIUM 9.4 mg/dL (8.8-10.2); CREATININE 1.5 mg/dL (0.5-0.9); DIRECT BILIRUBIN 0.1 mg/dL (0.00-0.20); POTASSIUM 3.5 mmol/L (3.5-5.1); TOTAL BILIRUBIN 0.39 mg/dL (0.20-1.00); TOTAL PROTEIN 6.4 g/dL (6.3-8.3)
[2019-11-04] MEDS: LACTULOSE PO SCH (10:04)
[2019-11-04] MEDS: LASIX IV SCH (10:04)
[2019-11-04] MEDS: XANAX PO SCH (10:05)
--- NOTE | 2019-11-04 11:40 | GASTROENTEROLOGY PROGRESS NOTE ---
DATE: 11/04/2019 SUBJECTIVE: I have spoken with the patient's nurse. She states patient is feeling better. She had multiple bowel movements yesterday after her laxatives. Her liver function tests have improved some today. There are plans for her to be discharged home today. OBJECTIVE: Vital Signs: Temperature 97.8 degrees, pulse 89, respirations 18, blood pressure 115/57. LABORATORY: Hematology: WBC 12.70, hemoglobin 12.0, hematocrit 37.8, MCV 91.1, platelet 395,000. Chemistry: Sodium 131, potassium 3.5, chloride 93, CO2 25, BUN 24, creatinine 1.5, glucose 122, total bilirubin 0.39, AST 117, ALT 124, alkaline phosphatase 213. ASSESSMENT AND PLAN: 1. Elevated liver function tests are improving most likely secondary to infectious etiology. No evidence of biliary disease that would require intervention at this time. 2. Acute respiratory distress secondary to bilateral pneumonia. Patient's symptoms have improved. Continue on recommended antibiotics. 3. Constipation. The patient has been given laxatives and has had multiple bowel movements per nurse report. Continue laxative as an outpatient. 4. The patient's symptoms have improved. Liver function tests are improving. I believe patient has discharge orders. We will currently sign off for now. We will follow up with her in the office at her next scheduled appointment unless she needs us sooner. I have discussed this case with Dr. Farrar. Dictated by CATY Lopez for Issac Farrar MD cc: CATY Sevilla MD [facility]
[2019-11-04 12:25] VITALS: BP 132/61
[2019-11-04] MEDS: LEVAQUIN 750 MG/D5W 750 MG/150 ML IVPB IV SCH (14:00)
--- NOTE | 2019-11-04 19:00 | PROVIDER PROGRESS NOTE ---
Progress Note Dr. Marroquin Progress Note/Pulmonary and or critical care Subjective: The patient is lying in bed with no acute distress noted. She is happy that she is going home today. She finally had BM this morning and feels better after that. She reports no significant cough or SOB, but generalized weakness. Patients at the bedside. Objective: Vital Signs: T 97.8(no fever in last 24 hours), [place] 86, RR 17, BP 115/57 and SaO2 93% on NC 2L. Physical Examination: General: Lying in bed with no acute distress noted. HEENT: Normocephalic. Trachea midline. Mucosa pink and moist. PERRL. Chest: Even and unlabored. No increased work of breathing noted. Symmetrical excursion. Auscultation reveals diminished breathing sounds bilaterally. CVS: S1 and S2 appreciated. Abdomen: Soft. Non-distended. Nontender. Normoactive bowel sounds noted. Extremities: No edema. No cyanosis. No clubbing. Neuro: A/O x3. Speech fluent. Follow commands. Labs and Radiology: Laboratory Results 11/04/19 11/04/19 07:26 07:26 WBC 12.70 H RBC 4.15 L Hgb 12.0 Hct 37.8 MCV 91.1 MCH 28.9 MCHC 31.7 L RDW Std Deviation 13.8 Plt Count 395 MPV 9.9 Immature Gran % (Auto) 0.5 Neut % (Auto) 73.9 Lymph % (Auto) 12.7 L [place] % (Auto) 10.1 H Eos % (Auto) 2.3 Baso % (Auto) 0.5 Immature Gran # (Auto) 0.06 H Neut # (Auto) 9.40 H Lymph # (Auto) 1.61 [place] # (Auto) 1.28 H Eos # (Auto) 0.29 Baso # (Auto) 0.06 Sodium 131 L Potassium 3.5 Chloride 93 L Carbon Dioxide 25 Anion Gap 13 BUN 24 H Creatinine 1.5 H Estimated GFR/1.73 m2 34 BUN/Creatinine Ratio 16 Glucose 122 H Calculated Osmolality 268 Calcium 9.4 Total Bilirubin 0.39 Direct Bilirubin 0.10 AST 117 H ALT 124 H Alkaline Phosphatase 213 H Total Protein 6.4 Albumin 2.9 L Globulin 3.5 Albumin/Globulin Ratio 0.8 Assessment: Acute hypoxemic respiratory failure. Bilateral pneumonia. CT thorax with contrast on 10/31/19 showed pulmonary emphysema and extensive interstitial and airspace infiltrates seen throughout both lungs indicating pulmonary edema and likely pneumonia. COPD with pulmonary emphysema. Elevated LFTs. Acute kidney injury. Worsening. Likely secondary to IV Lasix. UTI. Encephalopathy. Improved. Generalized weakness. DNR 2. Plan: Continue supplemental oxygen. We titrate supplemental oxygen to patients needs per clinical protocols. We will monitor patients response closely. Continue antibiotics including Levaquin, Linezolid and Zosyn. Continue bronchodilators. Continue diuretic. GI and DVT prophylaxis. Discharge planning per Hospitalist.
--- NOTE | 2019-11-10 12:48 | DISCHARGE SUMMARY ---
ADMISSION DATE: 10/30/2019 DISCHARGE DATE: 11/04/2019 DISCHARGE DIAGNOSES: 1. Acute respiratory failure secondary to bilateral pneumonia, improved. 2. Elevated liver function tests. 3. General weakness. 4. Hypertension. PROCEDURES: 1. Chest x-ray done on admission showed bilateral pneumonia. 2. Abdominal ultrasound showed no evidence of acute disease. 3. Chest CT showed pulmonary emphysema, extensive interstitial and airspace infiltrates seen throughout both lungs indicating pulmonary edema and likely pneumonia. 4. Echocardiogram Doppler showed normal left ventricular size cavity with ejection fraction to 60% to 65%. No pericardial effusion or obvious intracardiac mass or thrombus seen. 5. Abdominal MRI showed dilatation of the common hepatic and common bile duct of uncertain significance. CONSULTATIONS: 1. Dr. Marroquin from Pulmonary. 2. Dr. Farrar from GI. HOSPITAL COURSE: In brief, this is a 74-year-old female who presented to the emergency department at [facility] with diffuse weakness, difficult with ambulation, poor appetite and weight loss. She reports that she has had pneumonia 3 times since , and here in the hospital, in the ER, she was found to have bilateral pneumonia with elevation of liver function tests. For pneumonia, she was started on broad-spectrum antibiotics with vancomycin and Zosyn, and she was doing fine. At the time of discharge, she was requiring just 2 liters of oxygen by nasal cannula and breathing okay, walking okay. Regarding elevated liver function tests, those were getting better since admission. We have done an MRI of the abdomen and abdominal ultrasound with results as above. We have consulted GI who recommend monitoring liver function tests only, and they will be seeing this patient in the office. The patient is clinically stable. We are going to send her home with oral antibiotics, and she is going to be seen by primary care doctor and GI in 2 to 3 weeks. DISCHARGE PHYSICAL EXAMINATION: Vital Signs: Temperature 97.6 degrees, heart rate 89, respiratory rate 17, blood pressure 132/61, and O2 saturation 99% on room. General: This is a 74- year-old female lying in bed, in no acute distress. Cardiovascular: S1 and S2 heard. No murmurs, gallops, or rubs. Regular rate and rhythm. Respiratory: Clear bilaterally to auscultation. No work of breathing or using accessory muscles. Abdomen: Soft, nontender to palpation. Bowel sounds present. No organomegaly. Extremities: No clubbing, cyanosis, or edema. Peripheral pulses present in both legs. Neurological: The patient is alert and oriented x3. Moves 4 extremities. DISCHARGE DISPOSITION: 1. Home to self-care. 2. Follow-up with primary care doctor in 1 to 2 weeks. LIST OF MEDICATIONS: 1. Cefdinir 300 mg 1 tablet p.o. twice daily for 10 days. 2. Potassium chloride 10 mEq 1 tablet p.o. daily. 3. Cardizem CD 180 mg 1 tablet p.o. daily. 4. Alprazolam 1 mg 1 tablet p.o. b.i.d. 5. Estrace vaginal cream as directed. 6. Atorvastatin 20 mg 1 tablet p.o. at bedtime. 7. Famotidine 1 tablet p.o. daily. 8. Senna Plus 2 tablets p.o. at bedtime. 9. Furosemide 20 mg p.o. daily. 10. [place] 10 1 tablet p.o. every 4 hours as needed for pain. cc: Jesus Acuña MD
== END 2019-11-04 15:37 | disposition home health service (06) | DRG 193 ==
LOC: SUPCPDRO → ED 11:47 → EDIPHOLD 14:24 → 1N 17:42 → ICU 11-01 14:29 → 3N 11-02 12:07
PROVIDERS: ATTEND Internal Medicine